=== PATIENT | male | born 1935 | race Caucasian/White ===

== ENCOUNTER 2017-06-02 16:01 | Emergency (ER) | payer MEDICARE ==
[~2017-06-02] VITALS: Ht 180.3 cm; Wt 108.9 kg
[~2017-06-02 16:01] MED LIST: ASPIRIN325; ATORVASTATIN CA40 MG PO; AVODART0.5 MG PO; BACTRIM DS TAB1 EACH PO; CIPRO500 MG PO; ELIQUIS5 MG PO; FLOMAX0.4 MG PO; HYDROCODONE-AP1 EAC6 PO; IBUPROFEN 800800 M1 PO; KEFLEX500 MG PO; LEVAQUIN 250 M250 MG PO; LEVAQUIN 500 M500 M2 PO; LEVAQUIN 500 M500 MG PO; MUCUS-ER MAX1200 MG PO; PREDNISONE50 MG PO; PRENATAL WITH IRON PO; PROAIR RESPICL90 MCG IH; PROPAFENONE 15150 MG PO; PROSCAR 5MG TABL5 MG PO; RYTHMOL 150MG150 M1 PO; SYMBICORT160 MCG/4. INH; VITAMIN B-1100 M1; ZOFRAN ODT4 MG PO
[2017-06-02] MEDS ORDERED: KEYTRUDA100 MG/4 M IV (16:32)
[2017-06-02] MEDS ORDERED: PERCOCET 5-3251 EACH PO (17:30)
[2017-06-02 17:40] VITALS: BP 177/79
== END 2017-06-02 17:41 | disposition home or self-care (01) ==
LOC: M.ERS 16:01
DX: S29.8XXA Other specified injuries of thorax, initial encounter (principal); I48.91 Unspecified atrial fibrillation; J45.909 Unspecified asthma, uncomplicated; E78.5 Hyperlipidemia, unspecified; J44.9 Chronic obstructive pulmonary disease, unspecified; Z87.440 Personal history of urinary (tract) infections; Z98.890 Other specified postprocedural states; Z85.528 Personal history of other malignant neoplasm of kidney; Z85.118 Personal history of other malignant neoplasm of bronchus and lung; Z88.6 Allergy status to analgesic agent; Z87.891 Personal history of nicotine dependence; X58.XXXA Exposure to other specified factors, initial encounter; Y93.89 Activity, other specified; Y92.89 Other specified places as the place of occurrence of the external cause; Y99.8 Other external cause status

== ENCOUNTER 2017-07-22 23:14 | Inpatient (IN) | payer MEDICARE ==
[~2017-07-22] VITALS: Ht 180.3 cm; Wt 109.8 kg
[~2017-07-22 23:14] MED LIST changes: +KEYTRUDA100 MG/4 M IV; +PERCOCET 5-3251 EACH PO
[2017-07-22 23:18] VITALS: BP 138/72
[2017-07-22 23:49] LABS: MCHC 34.3 g/dL (28.0-37.0); MCV 90.7 fL (80.0-100.0); NUCLEATED RBCS 0 /100WBC
[2017-07-22 23:51] LABS: HEMATOCRIT 28.4 % (42.0-52.0); HEMOGLOBIN 9.8 gm/dL (14.0-18.0); MCH 31.2 pg (26.0-34.0); MPV 6.9 fl. (7.2-11.1); PLATELET COUNT* 422 thou/uL (150-400); RBC 3.13 mil/uL (4.50-6.00); RDW-CV 13.8 % (10.5-14.5)
[2017-07-22 23:52] LABS: CALCIUM 8.7 mg/dL (8.5-10.1); CREATININE 1.3 mg/dL (0.6-1.3); POTASSIUM 4.8 mmol/L (3.5-5.1)
[2017-07-22 23:56] LABS: ALBUMIN 3.2 g/dL (3.4-5.0); TOTAL BILIRUBIN 0.2 mg/dL (<0.1-1.0); TOTAL PROTEIN 6.6 g/dL (6.4-8.2)
[2017-07-22 23:58] LABS: WBC 0.9 thou/uL (4.0-11.0)
[2017-07-23] VITALS (26 sets, daily range): BP systolic 91–183; BP diastolic 44–129
[2017-07-23 00:24] LABS: ABSOLUTE LYMPHOCYTES 0.6 thou/uL (0.8-5.3); ABSOLUTE MONOCYTES 0.1 thou/uL (0.0-1.2); ABSOLUTE NEUTROPHILS 0.3 thou/uL (1.6-8.1)
[2017-07-23 00:25] LABS: PLATELET ESTIMATE INCREASED
[2017-07-23 00:26] LABS: LARGE PLATELETS OCCASIONAL
[2017-07-23 00:27] LABS: POIKILOCYTOSIS 1+
[2017-07-23 01:31] LABS: URINE BILIRUBIN NEGATIVE (Negative); URINE BLOOD NEGATIVE (Negative); URINE CLARITY CLEAR; URINE COLOR YELLOW; URINE GLUCOSE-RANDOM NEGATIVE (Negative); URINE KETONES NEGATIVE (Negative); URINE LEUKOCYTES-REFLEX NEGATIVE (Negative); URINE PROTEIN NEGATIVE (Negative); URINE UROBILINOGEN 0.2 E.U./dl (0.2-1.0)
[2017-07-23 01:32] LABS: URINE NITRITE-REFLEX POSITIVE (Negative)
[2017-07-23 01:54] LABS: CASTS None Seen /LPF (None Seen); SQUAMOUS 0-3 Few /LPF (0-3); URINE RBC 0-2 Rare /HPF (0-2); URINE WBC-REFLEX 0-5 Rare /HPF (0-5)
[2017-07-23 01:55] LABS: BACTERIA-REFLEX >30 Many /HPF (None Seen); CRYSTALS None Seen /LPF (None Seen)
[2017-07-23 05:00] LABS: INR 1.3; PROTIME 13.1 Seconds (9.20-11.50)
[2017-07-23] MEDS ORDERED: MS CONTIN15 MG PO (09:38)
--- NOTE | 2017-07-23 11:55 | NUR ---
RECEIVED PT FROM PACU. UPON COMING TO UNIT PT TAKING OF OXYGEN FREQUENTLY. PT STARTED TO BECOME COMPATIVE, WOULD NOT KEEP O2 ON, DESATTING TO 79%. CALLED, ASKED FOR ORDER FOR RESTRAINTS. PT IN BILATERAL SOFT WRIST RESTRAINTS FOR 1.5 HOURS. PT PLACED ON TENT MASK FROM SURGERY. PT PUT ON 4L NC. SATTING 95. OXYGEN TITRATION PER PROTOCOL. PT CURRENTLY ON 2L NC SATTING AT 95%. PT A/O X'S 4. CALM. COOPERATIVE. VSS. AFEBRILE. NPO. CADENA IN PLACE (PLACED IN SURGERY). FAMILY IN ROOM. WILL CONTINUE PLAN OF CARE.
--- NOTE | 2017-07-23 13:07 | EKG ---
[place] [address] ELECTROCARDIOGRAM REPORT Name: CAROLANN KELLOGG Room: [address] ADM IN M.R.#: [id number] Admission: 07/23/17 Attend Phys: Josephine Mcfarlaen Discharge: Date of : 35 Report #: [id number] THIS REPORT FOR: //name// [facility] ED Test Date: 2017-07-23 Test Time: 04:16:22 Pat Name: CAROLANN KELLOGG Department: Room: [facility] Gender: M Construction Superintendent: SCOOTER Hall : 1935 Requested By: Rebecca Arnold Order Number: [id number] MD: Jon Bear Measurements Intervals Bruno Rate: 95 P: 64 NC: 172 QRS: 4 QRSD: 90 T: 70 QT: 317 QTc: 399 Interpretive Statements Sinus rhythm Abnormal inferior Q waves Minimal ST depression, lateral leads Compared to ECG 03/08/2017 00:35:39 Inferior Q waves now present Q waves now present ST (T wave) deviation now present First degree AV block no longer present Electronically Signed On 07-23-2017 13:07:33 CDT by Jon Bear [email or web address] <ELECTRONICALLY SIGNED> By: Joss Bear MD, FAC 07/23/17 1307 0416 0416 Joss Bear MD, FAC /EPI
--- NOTE | 2017-07-23 15:06 | NUR ---
ONCOLOGY ASKED THAT PT BE PLACED ON ANTICOAGULATION PT HAS ANTIPHOSPHOLIPID SYNDROME , REQUESTED LOVENOX WHEN OKAY WITH SURGERY. SURGERY CALLED AND SAID NO LOVENOX TODAY WILL REASSESS TOMORROW. SURGERY NOTIFIED OF PT'S CONDITION. RECEIVED ADDITIONAL ORDERS FROM ONCOLOGY.
[2017-07-23 16:12] LABS: HEMATOCRIT 23.7 % (42.0-52.0); HEMOGLOBIN 8.1 gm/dL (14.0-18.0); LYMPHOCYTES 8.2 %; MCHC 34.3 g/dL (28.0-37.0); MCV 90.4 fL (80.0-100.0); MONOCYTES 6.5 %; NUCLEATED RBCS 0 /100WBC; POLYS 85.3 %; RBC 2.62 mil/uL (4.50-6.00)
[2017-07-23 16:18] LABS: ABSOLUTE LYMPHOCYTES 0.3 thou/uL (0.8-5.3); ABSOLUTE MONOCYTES 0.3 thou/uL (0.0-1.2); ABSOLUTE NEUTROPHILS 3.4 thou/uL (1.6-8.1); PLATELET COUNT* 252 thou/uL (150-400)
--- NOTE | 2017-07-23 18:30 | NUR ---
PT C/O OF ABDOMINAL PAIN WITH COUGHING. PAIN MANAGED WITH PRN MORPHINE. PT TITRATED TO 2L NC. CADENA DRAINING DEPENDENTLY. YELLOW URINE. PT NPO. PT PERFORMS ORAL CARE INDEPENDENTLY.
[2017-07-24] VITALS (16 sets, daily range): BP systolic 100–130; BP diastolic 46–64
[2017-07-24 05:03] LABS: HEMATOCRIT 23.3 % (42.0-52.0); HEMOGLOBIN 7.9 gm/dL (14.0-18.0); MCHC 34.1 g/dL (28.0-37.0); MPV 7.6 fl. (7.2-11.1); NUCLEATED RBCS 0 /100WBC; PLATELET COUNT* 216 thou/uL (150-400); RBC 2.57 mil/uL (4.50-6.00); RDW-CV 14.2 % (10.5-14.5); WBC 12.8 thou/uL (4.0-11.0)
[2017-07-24 05:23] LABS: CALCIUM 7.9 mg/dL (8.5-10.1); CREATININE 1.6 mg/dL (0.6-1.3); POTASSIUM 5.2 mmol/L (3.5-5.1)
[2017-07-24 06:03] LABS: ABSOLUTE LYMPHOCYTES 0.5 thou/uL (0.8-5.3); ABSOLUTE MONOCYTES 0.6 thou/uL (0.0-1.2); ABSOLUTE NEUTROPHILS 11.6 thou/uL (1.6-8.1); PLATELET ESTIMATE ADEQUATE
[2017-07-24 06:04] LABS: ANISOCYTOSIS 1+; POIKILOCYTOSIS 1+; TOXIC GRANULATION 1+
--- NOTE | 2017-07-24 07:08 | NUR ---
PT CARE ASSUMED AFTER REPORT. ASSESSMENT COMPLETE. SR ON MOMITOR. DENIED NEED FOR PAIN MEDICATION. COLOSTOMY WITH SMALL AMOUNT OF WATERY RED FLUID. IVF INFUSING. CADENA TO DD. NEUTROPENIC PRECAUTIONS IN PLACE. NPO FOR ECHO TODAY. FALL PRECAUTIONS IN PLACE INCLUDING BED ALARM. CALL LIGHT IN REACH. BED IN LOWEST POSITION. SLOWLY PROGRESSING TOWARDS GOALS.
--- NOTE | 2017-07-24 07:30 | NUR ---
PT RESTING IN BED, NON PRODUCTIVE COUGH NOTED. PT DRESSINGH TO MID ABD INTACT. STOMA REMAINS PROTRUDING WITH REDISH CLEAR DRAIANGE NOTED.PARTIAL PLATED BRUSHED AND GIVEN TOPTY.
--- NOTE | 2017-07-24 10:38 | NUR ---
CHART REVIEWED, SPOKE WITH PT AND . PT HAD EMERGENCY EXP LAPAROTOMY AND COLOSTOMY YESTERDAY. PT ALERT AND ORIENTED AND ABLE TO ANSWER QUESTIONS. PT HAS CANCER, IS CURRENTLY GETTING CHEMO, HE SAID HE HAS BEEN DOING FARILY WELL WITH THAT. PT'S DRIVES HIM TO HIS CHEMO APPTS. IS SCHEDULED FOR SURGERY ON 08/03, SHE CANNOT POSTPONE THIS SURGERY. SHE HAS BEEN TOLD SHE WILL BE IN THE HOSPITAL FOR 5-7 DAYS. ASKING ABOUT PT GOING TO [facility] FOR 20 DAYS OF SKILLED CARE WHEN HE IS DISCHARGED, TO GET HIM PAST THE POINT OF HER SURGERY. DISCUSSED WITH PT AND THAT PT MAY NOT QUALIFY FOR MEDICARE CVERRED SKILLED TIME IN A FACILITY, IT WILL DEPEND ON HOW HE IS DOING AT TIME OF DISCHARGE. IF PT DOESN'T QUALIFY FOR SNF, HE WOULD HAVE HOME HEALTH AT THE TIME OF DISCHARGE. SAID SHE WILL START TALKING WITH FAMILY TO SEE IF THEY CAN ARRANGE THEIR SCHEDULES TO HELP WITH PT WHILE SHE IS IN THE HOSPITAL IF NEEDED. CASE MGT WILL CONTINUE TO FOLLOW.
--- NOTE | 2017-07-24 14:30 | 2DMMODE ---
[place] [address] 2 D/M-MODE ECHOCARDIOGRAM Name: CAROLANN KELLOGG Room: [address] ADM IN [facility]#: [id number] Admission: 07/23/17 Attend Phys: Boone Hinkle Discharge: Date of : 35 Date of Service: 07/24/17 1430 Report #: [id number] THIS REPORT FOR: //name// APPROVED REPORT Study performed: 07/24/2017 10:40:14 EXAM: Comprehensive 2D, Doppler, and color-flow Echocardiogram Patient Location: In-Patient Room #: 003 BSA: 2.23 HR: 78 bpm BP: 128/46 mmHg Other Information Study Quality: Technically Difficult Technically limited study due to inability to position patient. Indications Atrial Fibrillation 2D Dimensions IVSd: 10.98 (7-11mm) LVOT Diam: 20.48 (18-24mm) LVDd: 43.17 mm PWd: 11.47 (7-11mm) Ascending Ao: 40.16 (22-36mm) LVDs: 31.80 (25-40mm) Aortic Root: 21.03 mm Volumes Left Atrial Volume (Systole) LA ESV Index: 18.20 mL/m2 Aortic Valve AoV Peak Ganga.: 1.36 m/s AO Peak Gr.: 7.36 mmHg LVOT Max P.35 mmHg AO Mean Gr.: 3.60 mmHg LVOT Mean P.34 mmHg LVOT Max V: 1.04 m/s AO V2 VTI: 19.36 cm LVOT Mean V: 0.72 m/s REGINO (VTI): 3.00 cm2 LVOT V1 VTI: 17.60 cm Mitral Valve MV Decel. Time: 169.90 ms MV PHT: 49.27 [place] [address] 2 D/M-MODE ECHOCARDIOGRAM Name: CAROLANN KELLOGG Room: [address] IN .R.#: [id number] Admission: 07/23/17 Attend Phys: Boone Hinkle Discharge: Date of : 35 Date of Service: 07/24/17 1430 Report #: [id number] MVA (PHT): 4.47 cm2 TDI Medial E' Ganga.: 0.13 m/s Lateral E' Ganga.: 0.17 m/s Pulmonary Valve PV Peak Ganga.: 1.31 m/s PV Peak Gr.: 6.84 mmHg Tricuspid Valve TR Peak Gr.: 22.26 mmHg RVSP: 27.26 mmHg Left Ventricle The left ventricle is normal size. There is normal LV segmental wall motion. Mild concentric left ventricular hypertrophy. Left ventricular systolic function is hyperdynamic. LVEF is >70%. The left ventricular diastolic function is normal. Right Ventricle The right ventricle is normal size. The right ventricular systolic function is normal. Atria The left atrium size is normal. The right atrium size is normal. Aortic Valve The aortic valve is normal in structure. No aortic regurgitation is present. There is no aortic valvular stenosis. Mitral Valve The mitral valve is normal in structure. There is no mitral valve regurgitation noted. No evidence of mitral valve stenosis. Tricuspid Valve The tricuspid valve is normal in structure. Mild tricuspid regurgitation. The RVSP is __27.3 mmHg. Pulmonic Valve Pulmonic valve is not well visualized. There is no pulmonic valvular regurgitation. Great Vessels Aortic root is mildly dilated. IVC is normal in size and collapses with >50% [place] [address] 2 D/M-MODE ECHOCARDIOGRAM Name: CAROLANN KELLOGG Room: [address] IN [facility]#: [id number] Admission: 07/23/17 Attend Phys: Boone Hinkle Discharge: Date of : 35 Date of Service: 07/24/17 1430 Report #: [id number] Pericardium There is no pericardial effusion. <Conclusion> Mild concentric left ventricular hypertrophy. LVEF is >70%. <ELECTRONICALLY SIGNED> By: Carolann Fowler MD, FACC 03/19/18 1430 1430 1430 Carolann Fowler MD, FAC /INF
--- NOTE | 2017-07-24 18:57 | NUR ---
PT DOING WELL. SCANT DRAINGE NOTED TO COLOSTOMY,PT TURNED THROUGH SHIFT. PT REMANS AFEVERILE. AM CARE COMPLETED.DRESSING TO ABD SITE REMANS DRY AND INTACT. PT IS PROGRESSING TOWARDS GOALS.
[2017-07-25] VITALS (10 sets, daily range): BP systolic 105–152; BP diastolic 45–72
[2017-07-25 05:45] LABS: HEMATOCRIT 23.4 % (42.0-52.0); MCH 31.1 pg (26.0-34.0); MCHC 34.1 g/dL (28.0-37.0); MCV 91.1 fL (80.0-100.0); MPV 7.9 fl. (7.2-11.1); NUCLEATED RBCS 0 /100WBC; PLATELET COUNT* 174 thou/uL (150-400); RBC 2.56 mil/uL (4.50-6.00); RDW-CV 14.7 % (10.5-14.5); WBC 23.5 thou/uL (4.0-11.0)
[2017-07-25 06:23] LABS: CALCIUM 8.3 mg/dL (8.5-10.1); CREATININE 1.8 mg/dL (0.6-1.3); POTASSIUM 4.7 mmol/L (3.5-5.1)
[2017-07-25 06:52] LABS: ABSOLUTE LYMPHOCYTES 0.2 thou/uL (0.8-5.3); ABSOLUTE MONOCYTES 0.9 thou/uL (0.0-1.2); ABSOLUTE NEUTROPHILS 22.3 thou/uL (1.6-8.1); PLATELET ESTIMATE ADEQUATE
--- NOTE | 2017-07-25 07:52 | CON ---
[facility] [address] [place] [address] CONSULTATION Name: CAROLANN KELLOGG Room: [address] ADM IN M.R.#: [id number] Admission: 07/23/17 Attend Phys: Josephine Mcfarlane Discharge: Date of : 35 Report #: [id number] THIS REPORT FOR: //name// CC: Uziel Hinkle DATE OF SERVICE: 07/24/2017 ATTENDING PHYSICIAN: Dr. Hinkle. REASON FOR EVALUATION: Peritonitis secondary to perforated sigmoid diverticulum. HISTORY OF PRESENT ILLNESS: Chart reviewed, patient examined. 82-year-old who was evaluated through the Emergency Room, is notable as advanced age, lung cancer, presented with a fairly abrupt abdominal related pain. This did have associated stools and attributed in part due to constipation. This, however, persisted, in fact worsened. He contacted the physician customer relations consultant who suggested he try some oxycodone for breakthrough pain. This was not successful, he is instructed to go to the Emergency Room. Evaluation was undertaken including imaging, which showed that sigmoid perforation with air dissection into the adjacent soft tissue with some free air. He did undergo operative exploration, confirmed to have perforated diverticulitis involving the sigmoid and underwent sigmoid colon resection and Madina colostomy. He is seen postop in the Intensive Care Unit. He is not intubated at this point. He has a moderate degree of pain, is generally fairly lucid, is requiring supportive measures with supplemental oxygen, was empirically started on antibiotics consisting of Flagyl, piperacillin, tazobactam and vancomycin. Of note, he has undergone recent chemotherapy, found to have a total white count of 0.9 on admission. His serial white counts are now 4.0 and then 12.8. ALLERGIES: NIACIN. CURRENT MEDICATIONS: Include pantoprazole, vancomycin, enoxaparin, metronidazole, albuterol, ondansetron as needed, Zosyn, morphine, zolpidem. PAST MEDICAL HISTORY: As noted above, advanced lung cancer, history of right renal cell carcinoma with post-nephrectomy, did have subsequent isolation of tumors related to the bladder on at least 3 occasion's screening. COPD, hematuria with a diagnosis of renal lithiasis, hyperlipidemia, atrial fibrillation. SOCIAL HISTORY: Former smoker, although quit a number of years ago[place] [address] CONSULTATION Name: CAROLANN KELLOGG Room: [address] IN [facility]#: [id number] Admission: 07/23/17 Attend Phys: Josephine Mcfarlane Discharge: Date of : 35 Report #: [id number] FAMILY HISTORY: Noncontributory. REVIEW OF SYSTEMS: As above. PHYSICAL EXAMINATION: GENERAL: He is pleasant, alert and cooperative. He appears fairly well-nourished. He is lucid, mild to moderate distress. VITAL SIGNS: Temperature 98.2, pulse 78, respirations 11, blood pressure 128/46. SKIN: Warm, dry. NECK: Supple. LUNGS: Few scattered coarse breath sounds. HEART: Regular. I do not appreciate any murmur. ABDOMEN: Soft. He does have a dressing in place and ostomy on the left side, is mildly distended. There is some tenderness expected postop related. GENITOURINARY: Deferred. RECTAL: Deferred. LABORATORY DATA: CBC: White count of 12.8, H and H 7.9 and 23.3, platelets of 216. 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 Electrolytes: Sodium 142, potassium 5.2, chloride 108, bicarb is 26, anion gap of 8, BUN and creatinine 26 and 1.6. Estimated GFR of 42. CT abdomen and pelvis as noted above. Lactic acid was 1.8 on admission. Urinalysis 0-5 white cells. Liver functions were otherwise unremarkable. Albumin 3.2, total protein 6.6. ASSESSMENT: Perforated sigmoid diverticulum in the setting of immunosuppression. White count has responded quite nicely at this point. He is not exhibiting evidence of multiorgan dysfunction. We will continue empiric antibiotics, await culture results, adjust therapy, likely pare down as needed He is generally doing fairly well given the overall picture. We will follow. <ELECTRONICALLY SIGNED> By: Natalio Shrestha MD 07/25/17 0752 0952 [id number] Shrestha MD /nt
--- NOTE | 2017-07-25 08:28 | NUR ---
TALKED WITH SURGERY, PT ON A CLEAR LIQUID DIET. PER DR BIANCHI IF PT TOLERATES PO DIET OKAY FOR PRIMARY TO RESTART PO MEDS. DR LOPEZ AWARE.
--- NOTE | 2017-07-25 13:11 | S ---
[facility] [address] [place] [address] SURGICAL PATH RPT PROCEDURE Name: CAROLANN KELLOGG Room: [address] ADM IN M.R.#: [id number] Admission: 07/23/17 Date of : 35 Discharge: Report #: [id number] Path Case #: [id number] PATHOLOGY REPORT COLLECTION DATE: 07/23/2017 RECEIVED DATE: 07/24/2017 SUBMITTING PHYS: Dr. Uziel Salas OTHER PHYS: Dr. Boone Hyatt SPECIMEN(S) RECEIVED: A.Sigmoid colon * * * * * * * * * * * * FINAL DIAGNOSIS: Sigmoid colon: - Segment of benign colon with diverticular disease including acute diverticulitis with perforation and acute serositis. (JUHI:[facility]; 07/25/2017) PATHOLOGIST: Brock Hanna M.D. REPORT ELECTRONICALLY SIGNED BY: Brock Hanan M.D. DATE/TIME: 07/25/2017 13:10 * * * * * * * * * * * * GROSS PATHOLOGY: The specimen is received in formalin, labeled "Carolann Kellogg, sigmoid colon," and consists of an unoriented segment of colon measuring 14.4 cm in length and 2.2 cm in diameter. Both margins are stapled closed. The serosal surface is pink-patel and smooth. There is a defect consistent with a perforation measuring 4.0 x 2.0 cm that extends to within 2.5 cm of the nearest stapled resection margin. The serosa surrounding the defect is inked black. The attached pericolic fat measures up to 7.3 cm. The specimen is opened along the antimesenteric line to reveal a mucosa filled with fecal material and flattened mucosal folds. Serial sectioning reveals a diverticulum measuring up to 1.4 cm in addition to the perforated diverticula. Sectioning through the attached pericolic fat reveals no grossly identifiable lymph nodes. Hydrator sections are submitted as follows: A1: Stapled resection margin A2: Stapled resection margin closest to perforation A3-A5: Hydrator sections through perforation A6: Additional diverticula (SDY; 07/24/2017) [place] [address] SURGICAL PATH RPT PROCEDURE Name: CAROLANN KELLOGG Room: [address] IN ..#: [id number] Admission: 07/23/17 Date of : 35 Discharge: Report #: [id number] Path Case #: [id number] CLINICAL HISTORY: Abdominal pain, colonic perforation Perforated sigmoid diverticulitis INITIAL CPT CODE(S): A; 62715 Professional services performed by [facility] at [address] [address] Technical services performed by [facility] at [address] [place] [address], [address], [place] [address]. [facility] [address] [address] PHONE: [phone] DIRECTOR: Leandro W. Vipin, M.D. * * * END OF REPORT * * *
--- NOTE | 2017-07-25 16:14 | CON ---
[address] [address] CONSULTATION Name: CAROLANN KELLOGG Room: [address] ADM IN M.R.#: [id number] Admission: 07/23/17 Attend Phys: Josephine Mcfarlane Discharge: Date of : 35 Report #: [id number] THIS REPORT FOR: //name// CC: Uziel Hinkle DATE OF SERVICE: 07/23/2017 HISTORY OF PRESENT ILLNESS: I was asked by Dr. Joseph to see this 82-year-old white male in cardiology consultation for evaluation and treatment of a history of atrial fibrillation. This man is hospitalized with a perforated sigmoid colon. He has a complex medical history, principally involving widespread metastatic lung cancer, apparently metastatic to kidneys and bladder and bone and possibly lung as well. He came in with a perforated sigmoid colon and had surgery last night. This man does have a history of coronary artery disease many years ago, I think he said 20 years ago and coronary stents then. He has some COPD and asthma and hyperlipidemia as well. He is in sinus rhythm. He has been on propafenone as an antiarrhythmic for 10 years and Eliquis for anticoagulation more recently. He has been on 300 mg b.i.d. of propafenone plain not extended release and he has not had any atrial fib since he has been on the propafenone for 10 years, which was started when he had his one and only episode of atrial fibrillation. His EKG shows normal sinus rhythm, heart rate is 95 and there are minor nonspecific T-wave abnormalities. He has not had any chest pain or angina. Coronary risk factors include a past history of smoking and hypercholesterolemia. He has not had high blood pressure, diabetes or family history of coronary artery disease. He is currently not smoking, but he does have a past history of smoking. He has not had renal failure, TIAs or CVAs or carotid disease or peripheral vascular disease or claudication. ALLERGIES: HE IS ALLERGIC TO NIACIN. MEDICATIONS: Include albuterol q.4h. p.r.n., Eliquis 5 mg b.i.d., atorvastatin 40 mg at bedtime, Symbicort daily, Proscar 5 mg daily, hydrocodone APAP p.r.n., morphine extended release 15 mg at bedtime, Keytruda a chemotherapy agent for his lung cancer 100 mg every 3 weeks and previously mentioned propafenone as well as a vitamin with iron. REVIEW OF SYSTEMS: Positive for weakness, weight loss, cough, shortness of breath with exercise, waking up short of breath, the previously mentioned cancers, ALLERGY TO NIACIN. Otherwise, his review of systems is negative for some 40 different complaints in 14 different system categories including central nervous system, general, respiratory, cardiovascular, endocrine, gastrointestinal, genitourinary, hematologic, lymphatic, allergic, immunologic, psychiatric, musculoskeletal, skin, eyes, ears, nose, mouth, [place] [address] CONSULTATION Name: CAROLANN KELLOGG Room: [address] IN ..#: [id number] Admission: 07/23/17 Attend Phys: Josephine Mcfarlane Discharge: Date of : 35 Report #: [id number] see review of system form for details and negatives in review of systems. FAMILY HISTORY: Negative for any pertinent family history. SOCIAL HISTORY: Unremarkable. PHYSICAL EXAMINATION: GENERAL: He presents as a well-developed, well-nourished white male in no acute distress. VITAL SIGNS: Pulse was 84 and regular, blood pressure is 114/49, respirations 13 and regular, temperature is 98.5. HEENT: Head was atraumatic. Eyes clear. NECK: Supple. There is no jugular venous distention or hepatojugular reflux. Thyroid is not enlarged. There is no adenopathy. SKIN: Warm and dry. Mucous membranes are moist. LUNGS: Clear to auscultation and percussion. HEART: Revealed normal first and second heart sounds. Soft S4. There is no S3. There are no murmurs, rubs, thrills, heaves or gallops. PMI is nondisplaced. ABDOMEN: Soft, flat, nontender, no palpable masses, no organomegaly. EXTREMITIES: Reveal no cyanosis, clubbing or edema. NEUROLOGIC: The patient mentated normally, talked and normally, moved all extremities normally. IMPRESSION: 1. History of atrial fibrillation, now in sinus rhythm. Apparently in sinus rhythm for the last 10 years. 2. Metastatic lung cancer. 3. Perforated sigmoid colon. 4. Status post surgery for perforated sigmoid colon last night. 5. Coronary artery disease. 6. Status post coronary stents. 7. Asthma. 8. Chronic obstructive pulmonary disease. 9. Hyperlipidemia. RECOMMENDATION: I would simply observe him from the cardiac point of view now. If he goes into atrial fibrillation, anticoagulating with heparin and I would probably use amiodarone after initially controlling his heart rate with Cardizem IV. I would use IV amiodarone of course. There is no IV propafenone that is available. Hopefully, he will not go into atrial fibrillation. [address] [address] CONSULTATION Name: CAROLANN KELLOGG Room: 003-P ADM IN .R.#: [id number] Admission: 07/23/17 Attend Phys: Josephine Mcfarlane Discharge: Date of : 35 Report #: [id number] Thank you very much for asking me to see the patient. If there are any questions, please feel free to contact me. <ELECTRONICALLY SIGNED> By: Joss Bear MD, FACC 07/25/17 1614 1232 1755F. Jon Bear MD, FACC /nt
[2017-07-25 17:46] LABS: URINE BILIRUBIN NEGATIVE (Negative); URINE BLOOD TRACE (Negative); URINE CLARITY CLOUDY; URINE COLOR YELLOW; URINE GLUCOSE-RANDOM NEGATIVE (Negative); URINE KETONES NEGATIVE (Negative); URINE LEUKOCYTES NEGATIVE (Negative); URINE NITRITE NEGATIVE (Negative); URINE PROTEIN 1+ (Negative); URINE SPECIFIC GRAVITY 1.025 (1.005-1.030); URINE UROBILINOGEN 0.2 E.U./dl (0.2-1.0)
[2017-07-25 17:53] LABS: BACTERIA None Seen /HPF (None Seen); MUCUS 0-3 Light strn/LPF (None Seen); SQUAMOUS 0-3 Few /LPF (0-3); URINE RBC 0-2 Rare /HPF (0-2); URINE WBC None Seen /HPF (0-5)
[2017-07-25 17:54] LABS: COARSE GRANULAR CASTS 4-10 Moderate /LPF (None Seen); CRYSTALS None Seen /LPF (None Seen)
--- NOTE | 2017-07-25 18:45 | NUR ---
PT TRANSFERED WITH ALL PERSONAL ITEMS. CESAR RN REMINDED THAT WHEN PT RESUMES HIS PO RYTHMOL TO STOP HIS CARDIZEN GTT.
--- NOTE | 2017-07-25 18:52 | NUR ---
PT TRANSFERRED TO ROOM 221 VIA BED AT 1815. REPORT RECEIVED FROM RICARDO HERRERA. THIS RN AGREES WITH PREVIOUS DISTANCE LEARNING TECHNICIAN. PT IN NEUTROPENIC PRECAUTIONS. PT A&0X4. TRACING SR ON THE DOPE HOUSE OPERATOR HELPER. PT ON 2L NC SAT 94%. DENIES ANY PAIN OR SHORTNESS OF BREATH AT THIS TIME. CADENA TO DEPENDENT DRAINAGE. LEFT LOWER QUADRANT COLOSTOMY TO DEPENDENT DRAINAGE WITH REDDISH PINK DRAINAGE NOTED. MIDLINE ABDOMINAL DRESSING IN PLACE- C/D/I. PT ON CLEAR LIQUID DIET. PT TO BE NPO AFTER MIDNIGHT FOR US ABDOMEN IN AM. MEDICATIONS PER JUL. PT REPOSITIONED FOR COMFORT. HOURLY ROUNDING OBSERVED. BED IN LOW POSITION. BED ALARM IN PLACE. FALL PRECAUTIONS IN PLACE. CALL LIGHT WITHIN REACH. WILL CONTINUE PLAN OF CARE.
[2017-07-26] VITALS: BP 157/82
--- NOTE | 2017-07-26 02:27 | NUR ---
Pt converted to Afib RVR at 0030, HR 130s. Within a 10-15 minutes pt's HR down to 90s-110s. Then at 0140, HR back up to 130s. Paged Dr. Grimes, orders received to resume Cardizem gtt at 5 mg/h, no bolus. Cardizem resumed at 0225. Pt asymptomatic. Will continue to monitor.
[2017-07-26 04:34] VITALS: BP 131/86
[2017-07-26 05:34] LABS: ABSOLUTE LYMPHOCYTES 0.4 thou/uL (0.8-5.3); ABSOLUTE MONOCYTES 1.1 thou/uL (0.0-1.2); ABSOLUTE NEUTROPHILS 17.5 thou/uL (1.6-8.1); BASOPHILS 0.1 %; EOSINOPHILS 0.1 %; HEMATOCRIT 24.3 % (42.0-52.0); HEMOGLOBIN 8.3 gm/dL (14.0-18.0); MCH 30.8 pg (26.0-34.0); MCHC 34.1 g/dL (28.0-37.0); MCV 90.5 fL (80.0-100.0); MONOCYTES 5.6 %; MPV 8.1 fl. (7.2-11.1); NUCLEATED RBCS 0 /100WBC; PLATELET COUNT* 139 thou/uL (150-400); POLYS 92.2 %; RBC 2.68 mil/uL (4.50-6.00); RDW-CV 14.4 % (10.5-14.5)
[2017-07-26 05:40] LABS: ALBUMIN 2.1 g/dL (3.4-5.0); CALCIUM 8.4 mg/dL (8.5-10.1); CREATININE 1.6 mg/dL (0.6-1.3); POTASSIUM 4.4 mmol/L (3.5-5.1); TOTAL BILIRUBIN 0.4 mg/dL (<0.1-1.0); TOTAL PROTEIN 5.4 g/dL (6.4-8.2)
[2017-07-26 08:11] VITALS: BP 128/66
--- NOTE | 2017-07-26 09:17 | NUR ---
ASSUMED CARE OF PT THIS AM AROUND 0715- TOWER CLEANER IN PLACE ORDERED, TRACING SR WITH 1ST DEGREE- UPON ASSESSMENT PT NOTED TO BE RESTING IN BED- PT A&O X4- COLOSTOMY IN PLACE RED STOMA, SMALL AMOUNT OF BROWN LIQUID NOTED- CADENA IN PLACE D/D- DIET ADVANCED TO FULL LIQUIDS PER SURGERY THIS AM-LUNG SOUNDS DIMINISHED, RESP EVEN AND UN-LABORED- VSS, O2 SAT 94% ON 1.5L-ABDOMEN FIRM/ROUND/TENDER, BS HYPOACATIVE-IV NOTED TO LEFT HAND INTACT IVF INFUSING PRESCIBED, 2ND IV NOTED TO LEFT WRIST INTACT WITH IV CARDIZEM INFUSING PRESCIBED, 3RD IV NOTED TO LEFT FA INTACT AND SL- ABDOMINAL ABD PAD NOTED OVER INCISSION C/D/I, ASSESSED PER SURGERY THIS AM- ABDOMINAL MIDLINE INCISSION WITH ROSEANNA NOTED- PT REPORTS PAIN 5/10 TO ABD, PRN MPAIN MEDICATIONS INDICATED- CALL LIGHT AND PERSONAL BELONGINGS WITH IN REACH- HOURLY ROUNDS IN PLACE R/T SAFETY/NEEDS- ALL NEEDS MET AT THIS TIME-WCTM
[2017-07-26 11:39] VITALS: BP 144/70
--- NOTE | 2017-07-26 12:41 | NUR ---
This RN agrees with the assessment of SN. Santosh
--- NOTE | 2017-07-26 14:46 | NUR ---
ORDERS NOTED THIS SHIFT FOR KUB TO BE COMPLETED R/T ABSENT BOWEL SOUNDS WITH DISTENTION NOTED PER THIS SHIFT-WHILE AWAITNG RESULTS WITH SURGERY IN TO ASSESS WITH VERBAL ORDERS NOTED THAT IF PT IS TO HAVE EMESIS X1 TO HAVE NG PLACED- RESULTS OF KUB NOTED SMALL BOWEL LOOPS COMPATIBLE WITH A HIGH GRADE DISTAL MECHANICAL SMALL BOWEL OBSTRUCTIONS- ORDERS COMMUNICATED TO - ORDERS RECIEVED TO PLACE NG TUBE, AND NOTIFY SURGERY- PT UPDATED ON ORDERS FOR NG TUBE AND PT AND EXPRESS THAT THEY DO NOT WANT TO HAVE NG PLACED AT THIS TIME, WOULD LIKE TO WAIT AT THIS TIME- UPDATED ON RESULTS WELL ORDERS WITH PT AND CONCERNS-ALSO UPDATED THAT PT HAS HAD DOUBLE WHAT WAS OBSERVED IN COLOSTOMY IN AM OF BROWN LIQUID- INSTRUCTIONS RECIVED TO ALLOW FOR CLEAR LIQUIDS/SIPS, BUT IF NAUSEA WORSENS OF EMESIS NOTED, NG TO BE PLACED- UPDATED ON SURGERY PLANS AND OKAY- FAMILY UPDATED ON PLANS AT THIS TIME AND POSSIBLE NEED FOR NG SHOULD THAT ARRISE R/T INCREASED NAUSEA OR EMESIS- PT AND EXPRESSED UNDERSTANDING- CALL LIGHT AND PERSONAL BELONGINGS WITH IN REACH- PT REPORTS NAUSEA TO BJE MANAGEABLE, CURRENTLY RESTING WITH NO PAIN REPORTED AT THIS TIME- TOLERATING ICE CHIPS AT THIS TIME- ALL NEEDS MET AT THIS TIME-WCCASANDRA
[2017-07-26 16:45] VITALS: BP 138/71
[2017-07-26 20:00] VITALS: BP 136/67
--- NOTE | 2017-07-26 23:21 | NUR ---
BEGAN CARE OF PT AT 1915, PT SLEEPING DURING BEDSIDE REPORT, REVIEWED CARDIZEM AND IV FLUIDS WITH RN AT THAT TIME, CARDIZEM RUNNING AT 5MG/HR CURRENTLY, WHEN RE-ASSESSMENT COMPLETED PT WAS A/OX4, AFIB ON THE MONITOR WITH HR IN THE 60'S, VSS, MEDS/ASSESSMENT PER CHARTING, PT REPORTED HE IS FREE FROM PAIN/SOA, ROSEANNA/INCISION TO ABD FREE FROM SWELLING/REDNESS/BLEEDING, COLOSTOMY BAG IN PLACE TO LLQ WITH SCANT OUTPUT AT TIME OF ASSESSMENT, PT STATED HE DOES NOT HAVE ANY NAUSEA AND IS HOPING HE DOES WELL OVER NIGHT BECAUSE HE DOES NOT WANT TO HAVE AN NG TUBE AGAIN HE REMEMBERS HAVING ONE BEFORE, HOURLY ROUNDING IN PLACE, FALL PRECAUTIONS IN PLACE WITH BED IN LOW LOCKED POSITION WITH ALARM SET AND CALL LIGHT IN REACH, WILL CONT TO MONITOR.
[2017-07-27] VITALS: BP 143/72
[2017-07-27 04:00] VITALS: BP 146/64
[2017-07-27 05:42] LABS: HEMATOCRIT 22.9 % (42.0-52.0); HEMOGLOBIN 7.8 gm/dL (14.0-18.0); MCH 31.5 pg (26.0-34.0); MCHC 34.2 g/dL (28.0-37.0); MPV 8.1 fl. (7.2-11.1); RBC 2.49 mil/uL (4.50-6.00); RDW-CV 14.9 % (10.5-14.5); WBC 8.1 thou/uL (4.0-11.0)
[2017-07-27 05:57] LABS: CALCIUM 8.2 mg/dL (8.5-10.1); CREATININE 1.6 mg/dL (0.6-1.3); MAGNESIUM 1.8 mg/dL (1.8-2.4); PHOSPHORUS* 3.4 mg/dL (2.5-4.9); POTASSIUM 4.1 mmol/L (3.5-5.1)
[2017-07-27 08:31] VITALS: BP 145/68
--- NOTE | 2017-07-27 10:51 | EKG ---
[place] [address] ELECTROCARDIOGRAM REPORT Name: CAROLANN KELLOGG Room: [address] ADM IN M.R.#: [id number] Admission: 07/23/17 Attend Phys: Josephine Mcfarlane Discharge: Date of : 35 Report #: [id number] THIS REPORT FOR: //name// 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
--- NOTE | 2017-07-27 10:51 | EKG ---
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 Electronically Signed On 07-27-2017 10:50:59 CDT by Kel Grimes [email or web address] <ELECTRONICALLY SIGNED> By: Kel Grimes MD, [facility] 07/27/17 1050 0133 0133 Kel Grimes MD, FACC /EPI
[2017-07-27 11:37] VITALS: BP 151/71
--- NOTE | 2017-07-27 14:48 | NUR ---
CM went to discuss disposition, Pt had a room full of visitors, CM to f/u later.
--- NOTE | 2017-07-27 14:52 | NUR ---
RECEIVED REPORT. ASSUMED CARE OF PT AROUND 0730. PT A&O X4, PLEASANT. VSS, O2 SAT 95% ON 2L PER NC. CARDIAC MONITORING IN PLACE TRACING SR. CARDIZEM DRIP STILL RUNNING AT 5MG/HR, TO CONTINUE FOR NOW PER CARDIOLOGY NURSE KARLENE. HR 70. AM ASESSMENT AND VITALS COMPLETED CHARTED. IV TO LEFT FOREARM INTACT AND INFUSING CARDIZEM. IV TO LEFT HAND INTACT AND INFUSING IVF. IV TO LEFT WRIST PT DISCONTINUED AND WAS REMOVED. PT ABLE TO TAKE IN APPLE JUICE AND WATER SO FAR TODAY - NO NAUSEA/VOMITTING SO FAR THIS SHIFT. PT STATES HE FEELS "MUCH BETTER TODAY". BOWEL SOUNDS AUSCULTATED IN ALL 4 QUADRANTS - HYPOACTIVE. PT BELCHING. COLOSTOMY IN PLACE AT [facility] - SMALL AMOUNT SOFT, BROWN STOOL NOTED. CADENA IN PLACE DRAINING YELLOW URINE. PT ABLE TO GET UP TO BEDSIDE CHAIR TODAY WITH ASSIST X1. TOLERATED WELL. FAMILY VISITED THIS AFTERNOON. DR MCBRIDE ROUNDED ON PT - VANCO STOPPED. PT INFORMED OF PLAN OF CARE, COMMUNICATES UNDERSTANDING. PT CURRENTLY RESTING IN BED. HIGH FALL RISK PRECAUTIONS IN PLACE. CALL LIGHT IS WITHIN REACH, HOULRY ROUNDING PERFORMED. PT REPOSITIONED Q2HRS FOR COMFORT. WCTM.
[2017-07-27 15:30] VITALS: BP 151/73
--- NOTE | 2017-07-27 19:03 | NUR ---
PT PROGRESSING TOWARDS GOALS. PT REMAINS A&O X4. VSS. O2 >90% ON 2L NC. VEHICLE UPHOLSTERER IN PLACE TRACING SR. IV TO LEFT FOREARM INFUSING CARDIZEM. IV TO LEFT HAND INFUSING IVF. CADENA REMOVED THIS EVENING. COLOSTOMY IN PLACE, 25ML SEMIFORMED OUTPUT NOTED. STOMA BEEFY RED. OSTOMY NURSE CONSULTED TO ASSIST WITH PT EDUCATION ABOUT COLOSTOMY CARE. PT REMAINS ON CLD - TOELRATING. PT DENIES NAUSEA/VOMITTING THIS SHIFT. FAMILY VISITED THROUGHOUT THE DAY. PT HAS DENIED PAIN THROUGHOUT THE SHIFT. PT ABLE TO WORK WITH P.T. TODAY. UP TO BEDSIDE CHAIR FOR A TIME. PT STATES HE HAS FELT GOOD TODAY. PT CURRENTLY WATCHING TV IN BED. FALL PRECAUTIONS ARE IN PLACE. CALL LIGHT IS WITHIN REACH. HOURLY ROUNDING PERFORMED.
[2017-07-27 20:30] VITALS: BP 136/65
[2017-07-28] VITALS: BP 132/60
[2017-07-28 04:00] VITALS: BP 128/64
--- NOTE | 2017-07-28 04:19 | NUR ---
ASSUMED PT CARE AT 1930, PT IS A&OX4, PT IS TRACING NSR/SA ON THE MONITOR, ON 2L NC SATTING MID TO HIGH 90'S. PT HAS IVF INFUSING PER MAR, PT HAS CARDIZEM RUNNING AT 5MG/HR WELL. PT DENIES ANY PAIN OR NEEDS AT THIS TIME. MIDLINE ABD INCISION IS CDI, CLOSED WITH ROSEANNA. PT HAS A NEW COLOSTOMY TO [facility], COLOSTOMY PUTTING OUT SMALL AMOUNTS OF STOOL. PT DENIES ANY NAUSEA THIS SHIFT, STILL C/O OF BELCHING. PT HAD CADENA REMOVED BY DAY RN AND PT HAS VOIDED MULTIPLE TIMES THIS SHIFT WITHOUT ANY ISSUES. BED IN LOW POSITION, CALL LIGHT IN REACH, BED ALARM ON, YELLOW ARM BAND AND SOCKS IN PLACE. HOURLY ROUNDING COMPLETED FOR PT SAFETY.
[2017-07-28 05:09] LABS: HEMATOCRIT 22.5 % (42.0-52.0); HEMOGLOBIN 7.7 gm/dL (14.0-18.0); MCH 31.4 pg (26.0-34.0); MCHC 34.2 g/dL (28.0-37.0); MCV 91.7 fL (80.0-100.0); MPV 8.1 fl. (7.2-11.1); NUCLEATED RBCS 0 /100WBC; PLATELET COUNT* 71 thou/uL (150-400); RBC 2.46 mil/uL (4.50-6.00); RDW-CV 14.7 % (10.5-14.5)
[2017-07-28 05:37] LABS: ALBUMIN 2.1 g/dL (3.4-5.0); CALCIUM 8.3 mg/dL (8.5-10.1); CREATININE 1.5 mg/dL (0.6-1.3); TOTAL BILIRUBIN 0.4 mg/dL (<0.1-1.0); TOTAL PROTEIN 5.4 g/dL (6.4-8.2)
[2017-07-28 05:44] LABS: MAGNESIUM 1.9 mg/dL (1.8-2.4); PHOSPHORUS* 3.2 mg/dL (2.5-4.9)
[2017-07-28 06:30] LABS: ABSOLUTE LYMPHOCYTES 0.7 thou/uL (0.8-5.3); ABSOLUTE MONOCYTES 0.7 thou/uL (0.0-1.2); ABSOLUTE NEUTROPHILS 4.6 thou/uL (1.6-8.1); PLATELET ESTIMATE DECREASED
[2017-07-28 06:31] LABS: TOXIC GRANULATION 1+
[2017-07-28 08:07] VITALS: BP 158/82
--- NOTE | 2017-07-28 10:50 | NUR ---
ASSUMED CARE OF PT AT 0730. PT RESTING IN BED WAITING FOR BREAKFAST. PT A&0X4. DENIES ANY PAIN OR SHORTNESS OF BREATH AT THIS TIME. PT TRACING SR ON THE DYE MAKER. ON 2L NC SAT 97%. CARDIZEM GTT INFUSING AT 5ML/HR. CARDIOLOGY HERE TO SEE PT. ORDERS RECEIVED PER [facility]AN CARDIOLOGY CHANNEL SUPERVISOR TO TRANSITION PT TO PO CARDIZEM AND DC CARDIZEM GTT. PO CARDIZEM STARTED AT APPROXIMATELY 0940. GTT DISCONTINUED AT APPROXIMATELY 1040. REFER TO EMAR. COLOSTOMY TO DEPENDENT DRAINAGE WITH SOFT BROWN STOOL. HYPOACTIVE BOWEL SOUNDS NOTED. ANEESH KENT, OSTOMY NURSE TO COME THIS AFTERNOON TO EDUCATE PT AND FAMILY. PT UP WITH 1 ASSIST WALKER AND GAIT BELT. PT AMBULATED WITH PHYSICAL THERAPY THIS AM. TOLERATED WELL. PT TOLERATING CLEAR LIQUID DIET WELL. PT DENIES ANY NAUSEA OR VOMITING. AM ASSESSMENT CHARTED. MEDICATIONS PER JUL. PT REPOSITIONED EVERY 2 HOURS WITH REMINDERS. HOURLY ROUNDING OBSERVED. BED IN LOW POSITION. BED ALARM IN PLACE. FALL PRECAUTIONS IN PLACE. CALL LIGHT WITHIN REACH. WILL CONTINUE PLAN OF CARE.
[2017-07-28 11:36] VITALS: BP 155/83
[2017-07-28 15:16] VITALS: BP 155/69
--- NOTE | 2017-07-28 15:30 | NUR ---
OSTOMY NURSE-PATIENT NOW 5 DAYS POST-OP FOLLOWING EXPLORATORY LAPAROTOMY, SIGMOIDECTOMY, & COLOSTOMY FORMATION ON 07/23/[address] RITCHIE FOR PEFORATED SIGMOID DIVERTICULITIS. ABDOMEN ROUNDED AND SLIGHTLY DISTENDED, SOFT. DRESSING INTACT TO MIDLINE ABDOMINAL INCISION - WAS JUST CHANGED, SO LEFT INTACT. COLOSTOMY POUCH INTACT TO LLQ WITH SMALL AMOUNT OF LOOSE DARK BROWN STOOL. STOMA APPROXIMATELY 1 1/2 INCHES, BEEFY RED, MOIST AND MODERATELY EDEMATOUS. MUCOCUTANEOUS INCISION WELL APPROXIMATED. PERISTOMAL SKIN INTACT. INSTRUCTED PATIENT, AND 'S SISTER ON EMPTYING AND CHANGING POUCH. THEY WERE ALL ATTENTIVE, AND VERY SUPPORTIVE. THEY ASKED SEVERAL APPROPRIATE QUESTIONS. PATIENT ENROLLED IN [employer] PROGRAM, AND HAS INITIAL SUPPLIES AND COLOSTOMY TEACHING PACKET AT BEDSIDE. HE ANTICIPATES RETURNING HOME ON DISCHARGE, SO WILL NEED HOME HEALTH FOLLOW-UP.
--- NOTE | 2017-07-28 18:52 | NUR ---
NO ACUTE CHANGES THROUGHOUT SHIFT. REFER TO CHARTING. PT CONTINUES TO TRACE SR ON THE [place] ARCHITECT. RATE IN THE 60-70'S. TOLERATING PO CARDIZEM. CARDIOLOGY SIGNED OFF. PT DIET ADVANCED TO FULL LIQUIDS FOR DINNER. PT TOLERATED FULL LIQUIDS WELL WITH NO NAUSEA OR VOMITING NOTED. PT TO HAVE ABDOMINAL XRAY IN AM 07/29. ABD PLACED TO MIDLINE INCISION DUE TO SLIGHT DRAINAGE. WILL CONTINUE TO MONITOR CLOSELY. PT AMBULATED WITH PHYSICAL THERAPY IN H[place]AY TODAY WITH WALKER AND GAIT BELT, TOLERATED WELL. ANEESH KENT, OSTOMY NURSE HERE TO EDUCATE PT AND PT FAMILY THIS AFTERNOON. COLOSTOMY CHANGED TODAY BY ANEESH KENT. COLOSTOMY TO DEPENDENT DRAINAGE. PT CONTINUES TO BE ON 2L NC SAT UPPER 90'S. DENIES ANY PAIN OR SHORTNESS OF BREATH. PT UP TO CHAIR FOR MEALS. IVF. MEDICATIONS PER JUL. PT REPOSITIONS SELF WITH REMINDERS. HOURLY ROUNDING OBSERVED. BED IN LOW POSITION. BED ALARM IN PLACE. FALL PRECAUTIONS IN PLACE. CALL LIGHT WITHIN REACH. WILL CONTINUE PLAN OF CARE.
[2017-07-28 22:27] VITALS: BP 156/72
[2017-07-29] VITALS: BP 147/76
[2017-07-29 04:26] VITALS: BP 156/74
--- NOTE | 2017-07-29 04:34 | NUR ---
ASSUMED PT CARE AT 1930, PT IS A&OX4, TRACING NSR ON THE MONITOR, ON 2L NC SATTING MDI TO HIGH 90'S. PT DENIES ANY PAIN OR NEEDS THIS SHIFT, PT IS ON FL DIET, TOLERATING IT WELL, DENIES ANY N OR V THIS SHIFT. IVF INFUSING PER JUL. PT HAS A COLOSTOMY TO Q, COLOSTOMY IS PUTTING OUT STOOL. MIDLINE ABD INCISION CLOSED WITH ROSEANNA AND COVERED BY ABD. PT SLEPT ON AND OFF THROUGHOUT THE NIGHT, BED IN LOW POSITION, CALL LILGHT IN REACH, BED ALARM ON, YELLOW ARM BAND AND SOCKS IN PLACE, HOURLY ROUNDING COMPELETED FOR PT SAFETY.
[2017-07-29 05:13] LABS: ABSOLUTE LYMPHOCYTES 0.4 thou/uL (0.8-5.3); ABSOLUTE MONOCYTES 1.1 thou/uL (0.0-1.2); ABSOLUTE NEUTROPHILS 4.3 thou/uL (1.6-8.1); BASOPHILS 0.1 %; HEMATOCRIT 21.7 % (42.0-52.0); HEMOGLOBIN 7.5 gm/dL (14.0-18.0); LYMPHOCYTES 6.4 %; MCH 31.7 pg (26.0-34.0); MCHC 34.7 g/dL (28.0-37.0); MCV 91.2 fL (80.0-100.0); MONOCYTES 18.6 %; MPV 8.7 fl. (7.2-11.1); NUCLEATED RBCS 0 /100WBC; PLATELET COUNT* 54 thou/uL (150-400); POLYS 74.9 %; RBC 2.38 mil/uL (4.50-6.00); RDW-CV 14.4 % (10.5-14.5); WBC 5.8 thou/uL (4.0-11.0)
[2017-07-29 05:26] LABS: CALCIUM 8.1 mg/dL (8.5-10.1); CREATININE 1.3 mg/dL (0.6-1.3); POTASSIUM 3.6 mmol/L (3.5-5.1); TOTAL BILIRUBIN 0.4 mg/dL (<0.1-1.0); TOTAL PROTEIN 5.2 g/dL (6.4-8.2)
[2017-07-29 06:38] LABS: PREALBUMIN 15.7 mg/dL (18.0-35.7)
[2017-07-29 08:48] VITALS: BP 163/81
--- NOTE | 2017-07-29 10:15 | NUR ---
ASSUMED CARE OF PT AROUND 0730 THIS AM. REFER TO ASSESSMENT. PT HAS NO CONCERNS THIS AM. TOLERATING DIET. NO C/O N/V. VSS. PT TRANSFERRED FROM BED TO CHAIR WITH MINIMAL ASSIST, GB, AND WALKER. PT UP TO CHAIR FOR MEALS AND TOLERATING. NO OTHER CONCERNS AT THIS TIME. CLWR. WCTM.
[2017-07-29 12:22] VITALS: BP 128/63
--- NOTE | 2017-07-29 17:10 | NUR ---
PT PROGRESSING WELL TOWARDS GOALS. TOLERATED DIET THIS SHIFT. NO C/O N/V. NO C/O PAIN. NO DRAINAGE NOTED FROM ABDOMINAL INCISION THIS SHIFT. COLOSTOMY HAVING OUTPUT OF SOFT BROWN STOOL WITHOUT DIFFICULTY. IV ABTS ADMINISTERED ORDERED. NO OTHER CONCERNS AT THIS TIME. CLWR. WCTM.
[2017-07-29 17:32] VITALS: BP 138/78
[2017-07-29 20:00] VITALS: BP 120/90
[2017-07-30] VITALS (7 sets, daily range): BP systolic 117–159; BP diastolic 62–79
--- NOTE | 2017-07-30 04:15 | NUR ---
ASSUMED CARE OF PT AT 1900 ALERT AND ORIENTED, VS AND ASSESSMENT STABLE. OSTOMY INTACT DRAINING SMALL AMOUT SOFT BROWN STOOL. MIDLINE ADB PAD CDI. PT DENIED ANY COMPLAINTS AND SLEPT THROUGH THE NIGHT. WILL MONITOR.
[2017-07-30 04:33] LABS: ABSOLUTE LYMPHOCYTES 0.5 thou/uL (0.8-5.3); ABSOLUTE MONOCYTES 1.3 thou/uL (0.0-1.2); ABSOLUTE NEUTROPHILS 5.3 thou/uL (1.6-8.1); BASOPHILS 0.1 %; HEMATOCRIT 20.8 % (42.0-52.0); HEMOGLOBIN 7.2 gm/dL (14.0-18.0); LYMPHOCYTES 7.5 %; MCH 31.3 pg (26.0-34.0); MCHC 34.5 g/dL (28.0-37.0); MCV 90.5 fL (80.0-100.0); MONOCYTES 17.7 %; MPV 9.2 fl. (7.2-11.1); NUCLEATED RBCS 0 /100WBC; PLATELET COUNT* 59 thou/uL (150-400); POLYS 74.7 %; RDW-CV 14.3 % (10.5-14.5); WBC 7.1 thou/uL (4.0-11.0)
[2017-07-30 04:52] LABS: ALBUMIN 1.9 g/dL (3.4-5.0); CREATININE 1.3 mg/dL (0.6-1.3); POTASSIUM 3.2 mmol/L (3.5-5.1); TOTAL BILIRUBIN 0.4 mg/dL (<0.1-1.0); TOTAL PROTEIN 5.1 g/dL (6.4-8.2)
[2017-07-30 04:53] LABS: MAGNESIUM 1.6 mg/dL (1.8-2.4); PHOSPHORUS* 3.3 mg/dL (2.5-4.9)
--- NOTE | 2017-07-30 12:09 | NUR ---
PT UP AMBULATING IN ROOM FOR ABOUT 10 MINUTES TODAY. ABLE TO GIVE SELF BED BATH AT THIS TIME WELL. MANDY.
--- NOTE | 2017-07-30 16:41 | NUR ---
PT PROGRESSING TOWARDS GOALS. POSSIBLE DC HOME TOMORROW W/ HH. PT VOICED ANXIETY ABOUT GOING HOME. DISCUSSED PT'S FEARS WITH HIM. VSS. LASIX DOSE GIVEN THIS SHIFT FOR FLUID RETENTION. PT HAVING ADEQUATE URINE OUTPUT. FAMILY AT BEDSIDE. ABT'S CHANGED TO ORAL THIS SHIFT. CLWR. WCTM.
--- NOTE | 2017-07-30 18:48 | NUR ---
PT NOTED TO BE ST W/ RATE IN THE 130-140'S. DR. LOPEZ NOTIFIED. ORDERED TO GIVE RYTHMOL HS DOSE EARLY. PT GIVEN DOSE AND THEN CONVERTED TO AFIB W/ RATE REMAINING AROUND 115-120'S. PT STARTED ON CARDIZEM GTT THIS EVENING. NO CARDIZEM BOLUS GIVEN. STARTED AT 5 MG/HR. NO OTHER CONCERNS AT THIS TIME. CLWR. WCTM.
[2017-07-31 00:09] VITALS: BP 129/60
[2017-07-31 04:18] VITALS: BP 118/65
--- NOTE | 2017-07-31 04:30 | NUR ---
END SHIFT: PT RESTED WELL. ADEQUATE OUTPUT FROM COLOSTOMY. PT WAS HAVING HESITENCY AND RETENSION WITH URINATION- STRAIGHT CATH ORDERED WITH GOOD RESULT. PT HAS VOIDED MULTIPLE TIMES SINCE. HR HAS INCREASED OVER SHIFT DESPITE CARDIZEM GTT. PT WITH NO REPORTS OF CHEST PAIN. SAFETY PRECAUTIONS IN PLACE. CALL LIGHT IN REACH. WILL CONT TO MONITOR.
[2017-07-31 04:41] LABS: ABSOLUTE LYMPHOCYTES 0.6 thou/uL (0.8-5.3); ABSOLUTE NEUTROPHILS 5.3 thou/uL (1.6-8.1); HEMATOCRIT 21.3 % (42.0-52.0); HEMOGLOBIN 7.4 gm/dL (14.0-18.0); MCH 31.2 pg (26.0-34.0); MCHC 34.8 g/dL (28.0-37.0); MCV 89.8 fL (80.0-100.0); MONOCYTES 14.5 %; MPV 9.3 fl. (7.2-11.1); NUCLEATED RBCS 0 /100WBC; PLATELET COUNT* 91 thou/uL (150-400); POLYS 76.5 %; RBC 2.38 mil/uL (4.50-6.00); RDW-CV 14.3 % (10.5-14.5)
--- NOTE | 2017-07-31 04:45 | NUR ---
SPOKE WITH DR LOPEZ ABOUT EKG CHANGES. ORDERS TO RE CONSULT CARDIOLOGY. PT IS STABLE, HR 140'S. NO PAIN. EKG SHOWS ECTOPIC ATRIAL TACHYCARDIA. NO ORDERS FOR TROPONINS PER DR LOPEZ. WILL CONT TO MONITOR
[2017-07-31 05:23] LABS: CREATININE 1.4 mg/dL (0.6-1.3); MAGNESIUM 1.5 mg/dL (1.8-2.4); POTASSIUM 3.3 mmol/L (3.5-5.1); TOTAL BILIRUBIN 0.3 mg/dL (<0.1-1.0); TOTAL PROTEIN 5.5 g/dL (6.4-8.2)
[2017-07-31 08:00] VITALS: BP 116/74
--- NOTE | 2017-07-31 08:58 | NUR ---
ASSUMED CARE OF PT THIS AM AROUND 0715- HOGSHEAD SALVAGE IN PLACE ORDERED, TRACING ST THIS AM- UPON ASSESSMENT PT NOTED TO BE UP IN BED SIDE CHAIR- GOOD PO INTAKE NOTED THIS AM WITH BREAKFAST- PT A&O X4- CONTINENT BLADDER, USING URINAL AT BED SIDE- ASSIST X1 WITH TRANSFERS- LCTA, RESP EVEN AND [id number], O2 SAT 98% ON 2L VIA NC- PRODUCTIVE COUGH NOTED THIS AM- ABDOMEN SOFT/ROUND/NON-TENDER, BS X4 QUADS- MIDLINE INCISSION WELL APPROXIMATED WITH ROSEANNA, PINKNESS NOTED, NO DRAINAGE- LLQ COLOSTOMY NOTED WITH LIGHT BROWN SOFT STOOL NOTED, STOMA BEEFY RED ANDN APPROPRIATE- GROSS EDEMA NOTED TO SCROTUM, ICE TO SITE PRN FOR SWELLING AND COMFORT- IV NOTED TO RIGHT HAND INTACT, CARDIZEM INFUSING AT 5ML PRESCIBED-PT DENIES ANY C/O PAIN/DISCOMFORT AT THIS TIME- CALL LIGHT AND PERSONAL BELONGINGS WITH IN REACH- HOURLY ROUNDS IN PLACE R/T SAFETY/NEEDS- ALL NEEDS MET AT THIS TIME- WCTM
--- NOTE | 2017-07-31 09:54 | NUR ---
CM spoke with Pt regarding disposition, Pt plans to go home with HH and the support of his dtrs and granddtr. Pt plans to pay granddtr to assist him at home. Pt will speak with family regarding HH choice. Following.
[2017-07-31 10:34] LABS: MAGNESIUM 1.6 mg/dL (1.8-2.4); POTASSIUM 3.6 mmol/L (3.5-5.1)
[2017-07-31 11:49] VITALS: BP 132/68
--- NOTE | 2017-07-31 14:51 | EKG ---
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 : 1935 Requested By: Boone Hinkle Order Number: [id number] Christi WHITLEY: Ever Strauss Measurements Intervals [place] Rate: 140 P: 249 ME: 109 QRS: 7 QRSD: 83 T: 203 QT: 260 QTc: 397 Interpretive Statements Supraventricular tachycardia Inferior infarct, age indeterminate possible Compared to ECG 07/27/2017 01:35:02 SUPRAVENTRICULAR TACHYCARDIA has developed Electronically Signed On 07-31-2017 14:51:46 CDT by Ever Strauss [email or web address] <ELECTRONICALLY SIGNED> By: Ever Strauss MD, [facility] 07/31/17 1451 043 0 Ever Strauss MD, FACC /EPI
--- NOTE | 2017-07-31 14:55 | EKG ---
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1935 Requested By: Katie Case Order Number: [id number] Christi MD: Ever Strauss Measurements Intervals [place] Rate: 78 P: [place]: QRS: 1 QRSD: 100 T: 85 QT: 393 QTc: 448 Interpretive Statements Atrial flutter/fibrillation Abnormal inferior Q waves Borderline repolarization abnormality Compared to ECG 07/27/2017 01:35:02 rate has decreased Electronically Signed On 07-31-2017 14:55:13 CDT by Ever Strauss [email or web address] <ELECTRONICALLY SIGNED> By: Ever Strauss MD, [facility] 07/31/17 1455 45 45 Ever Strauss MD, FAC /EPI
[2017-07-31 16:03] VITALS: BP 137/67
--- NOTE | 2017-07-31 16:24 | NUR ---
PT MELBA RESTING IN BED, AT SIDE VISITING- NYLON HOT WIRE CUTTER IN PLACE ORDERED, TRACING A-FIB- CARDIZEM INCREASED TO 10 @ 1025 PER LACY, LAUNDRY HOUSEKEEPING AIDE WITH CARDIOLOGY REQUEST AT 1025- RYTHMOL INCREASED FROM BID TO TID- SECOND DOSE GIVEN AROUND 1300- HR NOTED A-FIB, WITH RATES 60-70'S CARDIZEM DECREASED TO 7ML/HR AT 1445- K+ REDRAW AT 1030 NOTED TO BE 3.6, MG REDRAW NOTED TO BE 1.6 AND REPLACED X2 THIS SHIFT PER PROTOCOL WITH REDRAW SCHEDULED FOR 1999- PT REPORTED TO HAVE HAD 800CC RETENTION ON PRIOR SHIFT- PT REPORTED HAVING TROUBLE URINATING THIS SHIFT, BLADDER SCAN REVEALED 609CC- NOTIFED WELL FABIOLA BARNES- ORDERS RECIEVED FOR CADENA TO BE PLACED, WITH F/U WITH IN 1-2 WEEKS FOR VOIDING TRIAL- 16 F CADENA PLACED AT 1500 THIS SHIFT, AND IS D/D CLEAR YELLOW URINE- PT REPORTS INSTANT RELIEF WITH CADEAN PLACEMENT- NO PROBLEMS NOTED WITH CADENA PLACEMENT- SCROTUM EDEMA NOTED, ELEVATION WITH ICE IN PLACE- GOOD PO INTAKE NOTED WITH MEALS- UP WORKING WITH PT THIS SHIFT PRESCIBED, TOLERATING WELL- PT DENIES ANY C/O PAIN/DISCOMFORT AT THIS TIME- CALL LIGHT AND PERSONAL BELONGINGS WITH IN REACH- ALL NEEDS MET AT THIS TIME-[facility]
[2017-07-31 20:00] VITALS: BP 144/61
[2017-08-01 00:12] VITALS: BP 139/71
[2017-08-01 04:00] VITALS: BP 141/66
--- NOTE | 2017-08-01 04:46 | NUR ---
ASSUMED PT CARE AT 1930, NURSING ASSESSMENT COMPLETED AT START OF SHIFT, TRACING AFIB WITH HR IN THE 7OS-90'S THIS SHIFT. PT CONTINUES ON CARDIZEM DRIP AT 5 MG/HR. DENIES PAIN THIS SHIFT. MIDLINE INCISION CLEAN,DRY, WELL APPROXIMATED, NO DRAINAGE NOTED. [address] COLOSTOMY TO LLQ WITH PINK STOMA. HOURLY ROUNDING COMPLETED, CALL LIGHT WITHIN REACH. PT PROGRESSING TOWARDS GOALS THIS SHIFT.
[2017-08-01 05:28] LABS: HEMATOCRIT 21.9 % (42.0-52.0); HEMOGLOBIN 7.6 gm/dL (14.0-18.0); MCH 31.4 pg (26.0-34.0); MCHC 34.8 g/dL (28.0-37.0); MCV 90.3 fL (80.0-100.0); MPV 9.1 fl. (7.2-11.1); NUCLEATED RBCS 0 /100WBC; PLATELET COUNT* 138 thou/uL (150-400); RBC 2.43 mil/uL (4.50-6.00); RDW-CV 14.5 % (10.5-14.5); WBC 7.5 thou/uL (4.0-11.0)
[2017-08-01 05:54] LABS: CALCIUM 8.3 mg/dL (8.5-10.1); CREATININE 1.3 mg/dL (0.6-1.3); MAGNESIUM 2.1 mg/dL (1.8-2.4); PHOSPHORUS* 3.3 mg/dL (2.5-4.9); POTASSIUM 3.8 mmol/L (3.5-5.1)
[2017-08-01 06:13] LABS: ABSOLUTE LYMPHOCYTES 0.7 thou/uL (0.8-5.3); ABSOLUTE MONOCYTES 0.2 thou/uL (0.0-1.2); ABSOLUTE NEUTROPHILS 6.6 thou/uL (1.6-8.1); ANISOCYTOSIS 1+; PLATELET ESTIMATE DECREASED; POIKILOCYTOSIS 1+
[2017-08-01 07:59] VITALS: BP 145/83
--- NOTE | 2017-08-01 10:06 | NUR ---
Spoke with Pt regarding disposition. Pt informed that he spoke with Dr Duong and is now in agreement with going to skilled. Faxed referral to [facility], [place]. Per onc and hospitalist, Pt's chemo is on hold presently. Dr Smith states that Pt may be ready to dc today, pending cardio clearance. Awaiting decision to accept. Following.
--- NOTE | 2017-08-01 10:58 | OP ---
[facility] [address] [place] [address] OPERATIVE REPORT Name: CAROLANN KELLOGG Room: [address] IN M.R.#: [id number] Admission: 07/23/17 Attend Phys: Josephine Mcfarlane Discharge: Date of : 35 Report #: [id number] THIS REPORT FOR: //name// CC: Uziel Cedeno Christina Hinkle DATE OF SERVICE: 07/23/2017 PREOPERATIVE DIAGNOSES: Perforated viscus with intra-abdominal free air, history of renal cell carcinoma. POSTOPERATIVE DIAGNOSES: Perforated diverticulitis with free intraperitoneal air and history of renal cell carcinoma with possible metastasis. PROCEDURE: Emergency exploratory laparotomy with sigmoid colon resection and Madina's colostomy. SURGEON: Uziel Salas DO LANDSCAPE PHOTOGRAPHER: Jordy Castro DO, PGY2 resident. SECOND LANDSCAPE PHOTOGRAPHER: Student, MS3. ANESTHESIA: General endotracheal. ESTIMATED BLOOD LOSS: Less than 30 mL. COMPLICATIONS: None. INDICATIONS FOR PROCEDURE: This is an 82-year-old gentleman who is being treated for metastatic renal cell carcinoma, currently on chemotherapy, presented today to the Emergency Room with acute onset of lower abdominal pain, which started after straining to have a bowel movement. He was noted on CT to have free intraperitoneal air and on physical examination, he was found to have a rigid, tender abdomen with positive rebound. Even though he was currently on chemotherapy and his white blood cell count was less than 1, he needed to go to surgery for the following procedure. DESCRIPTION OF PROCEDURE: After obtaining proper consents and discussing risks and complications with the patient and his , he was taken to the operating room, laid on the supine position, administered general endotracheal anesthetic. He was then prepped and draped in the usual fashion. [place] [address] OPERATIVE REPORT Name: CAROLANN KELLOGG Room: [address] IN [facility]#: [id number] Admission: 07/23/17 Attend Phys: Josephine Mcfarlane Discharge: Date of : 35 Report #: [id number] inserted. We then performed a timeout and confirmed the appropriate patient and procedure. We then made an infraumbilical midline incision from the umbilicus extending down to the pubic symphysis with a #10 scalpel blade. This was carried down through the skin into the subcutaneous tissue using electrocautery for hemostasis. Once the fascia was encountered, it was incised along the midline, grasped and elevated. The peritoneum was then bluntly opened using a hemostat. Once within the peritoneal cavity, we then extended the peritoneal and fascial opening for the entire length of the incision. We then explored the abdomen and immediately identified some cloudy fluid. There was also noted to be quite a bit of air in the mesentery of the sigmoid colon and also in the omentum and in the retroperitoneal space. We immediately identified a black area consistent with bowel perforation. This was located just to the left of midline and was along the sigmoid colon, which was markedly redundant as well. We explored the remainder of the abdomen and found no gross abnormalities other than on palpation of the left lobe of the liver, the patient did have an approximately 2 cm firm mass. I was not able to visualize this as there was a large amount of omental fat, but I was able to palpate it. He was also noted to have a distended gallbladder. The entire small bowel appeared normal. At this point, we elected to perform a sigmoid colon resection of this area that was perforated. The sigmoid colon was quite redundant and there were some attachments along the left lateral abdominal wall and also along the superior surface of the bladder, which were taken down using electrocautery cautiously to free the sigmoid colon. Once it was completely freed, we then extended up along the left pericolic gutter as well and mobilized the left colon. I then chose a point distally where there was free of disease and very little inflammation. I then opened an avascular window in the mesentery. We then fired a ARIK 80 across this area. I then used the LigaSure Impact device to sequentially clamp and divide the mesentery, extending more proximally until we were well proximal to the area of perforation in a fairly diseased free area. I then used a ARIK 80 to divide the colon and the specimen was passed off. We then assured hemostasis. Once hemostasis was assured, I then brought the descending colon out as a colostomy by opening a circular window in the skin and in the left abdomen just below the level of the umbilicus, lateral to the rectus muscles. This opening was extended all the way down to the fascia and then a cruciate incision was made. We then brought the colon up through that hole. It was then secured in place to the peritoneum using a 2-0 PDS suture. Once this was all complete, we then copiously irrigated the abdominal cavity and again checked all the cut surfaces to assure there was no bleeding. Then, we performed a sponge, needle and instrument count that was all correct. We then closed the peritoneum and fascia using a running #1 looped PDS suture. Subcutaneous tissues were closed using 3-0 Vicryl suture. The skin was closed using metallic skin clips. We then turned our attention to the colostomy in the left lower abdomen, we then first attached the serosa to the fascia using a 2-0 Prolene suture. The colon was then opened and the stoma was created by using interrupted 3-0 Vicryl sutures to suture the serosa and mucosa to the skin. Prior to closing the abdominal cavity, we had also placed 2 stay sutures on [place] [address] OPERATIVE REPORT Name: CAROLANN KELLOGG Room: [address] IN [facility].#: [id number] Admission: 07/23/17 Attend Phys: Josephine Mcfarlane Discharge: Date of : 35 Report #: [id number] just in case we need to define that for reversing this colostomy at some later time. Once the stoma was completed, stoma pouch was placed. Sterile dressings were then placed and the patient was awakened in the operating room and transported to the Intensive Care Unit in guarded condition. <ELECTRONICALLY SIGNED> By: Uziel Salas DO 08/01/17 1058 0804 [id number] Salas DO /nt
[2017-08-01 11:38] VITALS: BP 145/80
--- NOTE | 2017-08-01 11:44 | NUR ---
This RN agrees with the assessment of SN. Pedro
--- NOTE | 2017-08-01 16:32 | NUR ---
ASSUMED CARE OF PATIENT THIS AM AT 0730. PATIENT IS ALERT AND ORIENTED X 4. HE DENIES PAIN TODAY. PATIENT HAS BEEN UP TO THE CHAIR X [address] IN TO ROUND AND DISCHARGE ORDERS WRITTEN. PLANS TO TRANSFER TO [facility] THIS EVENING. PATIENT HAS A CADENA CATH TO . COLOSTOMY BAG IS PRESENT AND INTACT. PATIENT HAS BEEN ON TELE MONITOR THROUGHOUT THE DAY. HEART RYHTHM AFIB WITH A RATE OF 70'S TO LOW 100"S. WAITING FOR BED AVAILABILITY.
[2017-08-01 20:00] VITALS: BP 151/69
[2017-08-02] VITALS: BP 177/98
[2017-08-02 01:59] VITALS: BP 153/90
[2017-08-02 04:00] VITALS: BP 143/78
--- NOTE | 2017-08-02 04:07 | NUR ---
Patient rested in bed. No acute changes. Patient did not show sings of distress. Patient vitals were stable. Possible dc later today. Patient had an decrease pluse in left foot. Hourly rounding, call light within reach, bed alarm placed, fall precautions. Patient hr afib 80's to low 100's.
--- NOTE | 2017-08-02 07:00 | NUR ---
PT OBSERVED TO HAVE SMALL AMOUNT AMOUNT OF SEROSENGUENOUS DRAINAGE FROM MIDLINE INCISION SITE THIS SHIFT. PT DENIES PAIN, AREA CLEANED WITH NS, DRIED AND COVERED WITH NONADHERENT DRESSING AT THIS TIME.
[2017-08-02 08:08] VITALS: BP 150/84
[2017-08-02] MEDS ORDERED: AUGMENTIN 875-1 EACH PO (11:14)
[2017-08-02] MEDS ORDERED: CARDIZEM CD180 MG PO (11:23)
[2017-08-02] MEDS ORDERED: FLOMAX0.4 MG PO (11:27)
[2017-08-02 11:39] VITALS: BP 150/84
--- NOTE | 2017-08-02 11:40 | NUR ---
Pt discharging to [facility] today, facility to picking supervisor at 1pm. Faxed dc orders. Chart copied. Nurse report number provided, . Updated dtr in room.
--- NOTE | 2017-08-02 11:45 | NUR ---
I HAVE REVIEWED THE STUDENT'S CHARTING.
--- NOTE | 2017-08-02 12:00 | NUR ---
AGREE WITH ASSESSMENT DOCUMENTATION ENTERED BY SN TODAY. PT A & O X4 AND ABLE TO COMMUNICATE NEEDS TO STAFF. AFIB ON TELE MONITOR, VS WNL W/O C/O PAIN, SOA OR DISTRESS. GAUZE/ABD TO MIDLINE INCISION WITH SERSANGUINEOUS DRNG. NEEDED ITEMS AND CALL IGHT WITHIN REACH.
[2017-08-02 12:22] VITALS: BP 129/78
--- NOTE | 2017-08-02 12:57 | NUR ---
I HAVE REVIEWED THE STUDENT'S CHARTING.
--- NOTE | 2017-08-02 13:10 | NUR ---
PT WITH COMPLETE DC ORDER. REVIEWED DC INSTRUCTIONS AND MED LIST WITH PT/DTR. QUESTIONS ANSWERED TO SATISFACTION OF PT/DTR. PT'S IV AND MONITOR DC'D. PT/DTR IN POSSESSION OF ALL PT'S BELONGINGS. PT LEFT UNIT WITH TRANSPORTER VIA . TRANPORTED BY MEHRAN SELBY TO [facility] BY TRANSPORTER.
--- NOTE | 2017-08-02 13:48 | CON ---
[address] [address] CONSULTATION Name: CAROLANN KELLOGG Room: [address] IN M.R.#: [id number] Admission: 07/23/17 Attend Phys: Josephine Mcfarlane Discharge: 08/02/17 Date of : 35 Report #: [id number] THIS REPORT FOR: //name// CC: Uziel Hinkle DATE OF SERVICE: 07/25/2017 CONSULTING PHYSICIAN: Dr. Duong. REASON FOR NEPHROLOGY CONSULTATION: Acute renal failure, solitary kidney. REASON FOR ADMISSION AND CHIEF COMPLAINT: Right-sided abdominal pain. 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 The patient was having constipation and when he was trying to strain to have a bowel movement, he had a sudden onset of left-sided abdominal pain. The patient was found to have free air under his peritoneum when he came to the ER and he was taken on 07/23/2017 emergently for an ex lap and a colostomy creation and bowel resection. His creatinine was 1.3 on admission, but it went up to 1.6 yesterday on 07/24/2017 and it is 1.8 today and hence, Nephrology has been consulted. He has had intermittent episodes of hypotension. His urine output has been decent, he has had about 1.4 liters of urine output in the last 24 hours. He also has history of benign prostatic hypertrophy, currently has a Bernal catheter, is on Flomax and finasteride. The patient follows with Dr. Skinner, urologist, pretty regularly. Now, his blood pressure is more stable. He also has leukocytosis today, but he received a dose of Neupogen since he is receiving chemotherapy. The patient failed treatment with Keytruda and stopped taking it around May of this year and has been on carboplatin and gemcitabine and has had about two infusions of that and next infusion was due yesterday. Hematology is closely following the patient as well. The patient was also getting empiric antibiotic treatment with vancomycin and Zosyn. The patient's right kidney was removed because of her renal cell carcinoma in 2014 and after that in 2016, he was diagnosed with metastases to lungs and ribs, and it seems like the histology was consistent with papillary cell cancer. The patient states that he also had some tumors in his bladder, which were resected at 2 different times; the last time, he was told that his bladder is free of any tumor. The patient is currently having some back pain because of his position in bed. He is not having any shortness of breath and he is also eating and drinking. He is hard of hearing. He does not take any NSAIDs. No ADEEL inhibitors or ARBs, no history [place] [address] CONSULTATION Name: CAROLANN KELLOGG Room: [address] IN ..#: [id number] Admission: 07/23/17 Attend Phys: Josephine Mcfarlane Discharge: 08/02/17 Date of : 35 Report #: [id number] ALLERGIES: NIACIN. PAST MEDICAL HISTORY: Includes a history of renal cell carcinoma status post right-sided nephrectomy and metastases to lungs and ribs, history of asthma, MS 20 years ago, and arrhythmia. He has atrial fibrillation. PAST SURGICAL HISTORY: Right nephrectomy, umbilical hernia repair. FAMILY HISTORY: Not relevant to the current situation. SOCIAL HISTORY: He does not smoke anymore, use alcohol or recreational drugs, and has a very supportive . HOME MEDICATIONS: These were reviewed. PHYSICAL EXAMINATION: VITAL SIGNS: Blood pressure is 114/57, pulse ox 93% on 2 liters nasal cannula, respiratory rate 14, temperature 36.8, pulse rate 61. GENERAL: He is alert, oriented, frustrated because he lost one of his hearing aids. HEAD, EYES, EARS, NOSE, THROAT: Mucous membranes are moist. NECK: No JVD. LUNGS: Diminished breath sounds, but no crackles or wheezing. CARDIOVASCULAR: S1, S2 normal. No murmurs heard. ABDOMEN: Soft. He has some incisional tenderness. He has a midline dressing present, which is intact and his ostomy is intact as well. Bowel sounds are diminished. EXTREMITIES: He has no lower extremity edema. Symmetrical extremities. NEUROLOGIC FUNCTION: Gross neurological function is intact. He is oriented x 3. PSYCHIATRIC: Mood is also normal. LABORATORY DATA: From 07/27/2017, WBC was 23.5, hemoglobin was 8.0. Sodium was 143, potassium was 4.7, creatinine was 1.8, and CO2 was 26. Other labs are reviewed. IMAGING: Abdominal CT scan was reviewed. ASSESSMENT AND PLAN: 1. Acute renal failure likely because of ischemic ATN: The patient has acute renal failure likely because of the hypotensive episodes, surgery 2 days ago. His blood pressure is better now. I would maintain him on normal saline at 50 mL an hour for today. His urine output is very good. Hopefully, creatinine will start getting better soon. Do not hold off on any diuretics, as he is not looking fluid overloaded. Dose all his medications for a GFR of less than 30 mL per minute. Vancomycin level should be checked daily and dose should be held if [facility] [address] [place] [address] CONSULTATION Name: CAROLANN KELLOGG Room: [address] IN .R.#: [id number] Admission: 07/23/17 Attend Phys: Joesphine Mcfarlane Discharge: 08/02/17 Date of : 35 Report #: [id number] the level is more than 20. Dosage should be decreased to every 12 hours. He has a solitary left kidney. Try to keep his mean arterial pressure more than 65-70. 2. History of renal cell carcinoma and mets to his ribs and lungs: Chemotherapy as per Hematology is on hold right now. The patient has a complex cyst in his left kidney and as per the patient, he has never been told that he has anything wrong with his left kidney. We will consult Urology to get this evaluated as well. 3. Benign prostatic hypertrophy: He is on Flomax and finasteride and he has a Bernal with good urine output for now. 4. Hypertension: Keep his blood pressure decent and mean arterial pressure more than 65-70. This is required for better renal perfusion. 5. Acute descending colon perforation, status post exploratory laparotomy, colon resection, colostomy creation: Surgery is following the patient. The patient is doing well from this perspective. 6. Atrial fibrillation with rapid ventricular response: Heart rate is now better, Cardiology is on board. I explained to the patient and his that his creatinine should start getting better soon, but in case if it does not get better and keeps getting worse, I asked them what their thoughts were on dialysis. The patient said that if he missed dialysis, he wants to go ahead and do it. The patient's did not think that dialysis will be a good idea with the patient being on palliative chemotherapy. The patient's and the patient will have a discussion about this. Anyway, there is no acute need for dialysis. We will continue to follow. Thank you for this consultation. <ELECTRONICALLY SIGNED> By: Joanna Whiteside MD 08/02/17 1348 1030 [id number] Whiteside MD /nt
== END 2017-08-02 13:14 | DRG 329 ==
LOC: M.ERS 23:14 → M.SUR 23:14 → M.TBA-CV 07-23 05:35 → M.SUR 07-23 05:35 → M.ICU 07-23 05:35 → M.TBA-CV 07-23 07:50 → M.ICU 07-23 07:50 → M.2W 07-25 18:14
PROVIDERS: Emergency Medicine; Internal Medicine; Internal Medicine Hematology & Oncology; Physician Assistant; Surgery; ADMIT Internal Medicine
PROC: 0DTN0ZZ Resection of Sigmoid Colon, Open Approach (ICD-10-PCS; principal; 2017-07-23)
PROC: 0D1N0Z4 Bypass Sigmoid Colon to Cutaneous, Open Approach (ICD-10-PCS; principal; 2017-07-23)
DX: K57.20 Diverticulitis of large intestine with perforation and abscess without bleeding (principal); R65.11 Systemic inflammatory response syndrome (SIRS) of non-infectious origin with acute organ dysfunction; E46 Unspecified protein-calorie malnutrition; D68.59 Other primary thrombophilia; D68.61 Antiphospholipid syndrome; E87.0 Hyperosmolality and hypernatremia; K56.7 Ileus, unspecified; N17.9 Acute kidney failure, unspecified; I48.91 Unspecified atrial fibrillation; E78.5 Hyperlipidemia, unspecified; J44.9 Chronic obstructive pulmonary disease, unspecified; D70.9 Neutropenia, unspecified; I25.10 Atherosclerotic heart disease of native coronary artery without angina pectoris; D70.1 Agranulocytosis secondary to cancer chemotherapy; N18.9 Chronic kidney disease, unspecified; N28.1 Cyst of kidney, acquired; D64.9 Anemia, unspecified; N50.89 Other specified disorders of the male genital organs; Z68.33 Body mass index [BMI] 33.0-33.9, adult; N40.1 Benign prostatic hyperplasia with lower urinary tract symptoms; R33.8 Other retention of urine; Z87.440 Personal history of urinary (tract) infections; Z85.528 Personal history of other malignant neoplasm of kidney; Z90.5 Acquired absence of kidney; Z85.118 Personal history of other malignant neoplasm of bronchus and lung; Z79.899 Other long term (current) drug therapy; Z88.8 Allergy status to other drugs, medicaments and biological substances; I25.2 Old myocardial infarction; Z98.61 Coronary angioplasty status; Z86.718 Personal history of other venous thrombosis and embolism; Z86.711 Personal history of pulmonary embolism

== ENCOUNTER 2017-11-02 17:32 | Inpatient (IN) | payer MEDICARE ==
[~2017-11-02] VITALS: Ht 180.3 cm; Wt 104.3 kg
[~2017-11-02 17:32] MED LIST changes: +AUGMENTIN 875-1 EACH PO; +CARDIZEM CD180 MG PO; +MS CONTIN15 MG PO
[2017-11-02 17:43] VITALS: BP 159/63
[2017-11-02 18:06] LABS: HEMATOCRIT 21.5 % (42.0-52.0); HEMOGLOBIN 7.2 gm/dL (14.0-18.0); MCH 31.5 pg (26.0-34.0); MCHC 33.6 g/dL (28.0-37.0); MCV 93.8 fL (80.0-100.0); MPV 7.2 fl. (7.2-11.1); NUCLEATED RBCS 0 /100WBC; PLATELET COUNT* 282 thou/uL (150-400); RDW-CV 15.9 % (10.5-14.5)
[2017-11-02 18:09] LABS: WBC 1.7 thou/uL (4.0-11.0)
[2017-11-02 18:13] LABS: CALCIUM 8.6 mg/dL (8.5-10.1); CREATININE 1.2 mg/dL (0.6-1.3); POTASSIUM 5.3 mmol/L (3.5-5.1)
[2017-11-02 18:23] LABS: ALBUMIN 2.9 g/dL (3.4-5.0); TOTAL BILIRUBIN 0.3 mg/dL (<0.1-1.0); TOTAL PROTEIN 6.5 g/dL (6.4-8.2)
[2017-11-02 18:36] LABS: ABSOLUTE LYMPHOCYTES 0.2 thou/uL (0.8-5.3); ABSOLUTE NEUTROPHILS 1.4 thou/uL (1.6-8.1)
[2017-11-02 18:38] LABS: ANISOCYTOSIS Occasional; HYPOCHROMASIA Occasional; OVALOCYTES Occasional; PLATELET ESTIMATE ADEQUATE
[2017-11-02 19:03] LABS: URINE BILIRUBIN NEGATIVE (Negative); URINE BLOOD NEGATIVE (Negative); URINE CLARITY CLEAR; URINE COLOR YELLOW; URINE GLUCOSE-RANDOM NEGATIVE (Negative); URINE KETONES NEGATIVE (Negative); URINE LEUKOCYTES-REFLEX NEGATIVE (Negative); URINE NITRITE-REFLEX NEGATIVE (Negative); URINE PROTEIN NEGATIVE (Negative); URINE UROBILINOGEN 0.2 E.U./dl (0.2-1.0)
[2017-11-02 21:00] VITALS: BP 137/63
[2017-11-03] MEDS ORDERED: COLACE100 MG PO (02:25)
[2017-11-03] MEDS ORDERED: CARBOPLATI10 MG/1 ML (02:27)
[2017-11-03] MEDS ORDERED: GEMZAR1 GM (02:27)
[2017-11-03 09:45] VITALS: BP 162/65
[2017-11-03 20:40] VITALS: BP 146/68
[2017-11-04 04:46] LABS: HEMATOCRIT 20.5 % (42.0-52.0); MCH 31.6 pg (26.0-34.0); MCHC 33.9 g/dL (28.0-37.0); MCV 93.4 fL (80.0-100.0); MPV 7.3 fl. (7.2-11.1); RBC 2.19 mil/uL (4.50-6.00); RDW-CV 15.7 % (10.5-14.5)
[2017-11-04 04:57] LABS: CALCIUM 8.4 mg/dL (8.5-10.1); CREATININE 1.1 mg/dL (0.6-1.3); MAGNESIUM 1.7 mg/dL (1.8-2.4); POTASSIUM 4.5 mmol/L (3.5-5.1)
[2017-11-04 05:04] LABS: HEMOGLOBIN 6.9 gm/dL (14.0-18.0); WBC 0.9 thou/uL (4.0-11.0)
[2017-11-04 07:02] VITALS: BP 143/61
[2017-11-04 16:00] VITALS: BP 145/66
[2017-11-05 04:17] LABS: HEMATOCRIT 22.2 % (42.0-52.0); HEMOGLOBIN 7.6 gm/dL (14.0-18.0); MCH 31.7 pg (26.0-34.0); MCHC 34.3 g/dL (28.0-37.0); MCV 92.4 fL (80.0-100.0); MPV 7.2 fl. (7.2-11.1); RBC 2.41 mil/uL (4.50-6.00); RDW-CV 15.7 % (10.5-14.5)
[2017-11-05 04:37] LABS: WBC 0.8 thou/uL (4.0-11.0)
[2017-11-05 05:43] LABS: CALCIUM 8.7 mg/dL (8.5-10.1); CREATININE 1.2 mg/dL (0.6-1.3); MAGNESIUM 1.8 mg/dL (1.8-2.4); POTASSIUM 4.8 mmol/L (3.5-5.1)
[2017-11-05 08:15] VITALS: BP 161/73
[2017-11-05] MEDS ORDERED: PROTONIX40 M2 PO (13:39)
[2017-11-05] MEDS ORDERED: FLAGYL500 MG PO (13:40)
[2017-11-05] MEDS ORDERED: CIPRO500 M1 PO (13:40)
[2017-11-05 13:53] VITALS: BP 161/73
--- NOTE | 2017-11-21 16:59 | CON ---
[address] [address] CONSULTATION Name: WILIAN KELLOGG Room: [address] IN ..#: [id number] Admission: 11/02/17 Attend Phys: Josephine Mcfarlane Discharge: 11/05/17 Date of : 35 Report #: [id number] THIS REPORT FOR: //name// CC: Wilian Hinkle DATE OF SERVICE: 11/04/2017 REASON FOR CONSULT: Abnormal CT, left lower quadrant abdominal pain and constipation. 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 He is neutropenic with WBC of 0.8. The patient has had history of colon perforation for which he has had sigmoid resection with colostomy in 07/2017. The patient was admitted to the hospital with left lower abdominal pain and constipation with decreased output from his colostomy site. CT of abdomen and pelvis had revealed evidence of colonic thickening proximal to the ostomy site. There was also mild fat stranding in this area. Since admission, the patient has been placed on MiraLax and starting to have looser stools. He reports that his left lower quadrant abdominal pain has completely resolved and denies fever, chills, nausea, vomiting, hematochezia or melena. PAST MEDICAL HISTORY: Significant for history of transitional cell carcinoma, bladder cancer, lung CA for which he is actively receiving chemotherapy, right nephrectomy, dyslipidemia, AFib, asthma, umbilical hernia repair, colonic perforation, status post sigmoid resection and colostomy, hypertension, and AFib. ALLERGIES: SIGNIFICANT TO NIACIN. MEDICATIONS: Please refer to hospital MAR. SOCIAL HISTORY: The patient may occasionally have an alcoholic beverage. He has remote history of tobaccoism, but does not smoke anymore. He is currently receiving chemotherapy for his lung CA with mets to his ribs. FAMILY HISTORY: Noncontributory. PHYSICAL EXAMINATION: VITAL SIGNS: Reveals blood pressure of 154/72, respirations 18, pulse 92, and [facility] [address] [place] [address] CONSULTATION Name: WILIAN KELLOGG Room: [address]#: [id number] Admission: 11/02/17 Attend Phys: Josephine Mcfarlane Discharge: 11/05/17 Date of : 35 Report #: [id number] temperature is 98.1. LUNGS: Clear to auscultation bilaterally. CARDIOVASCULAR: Regular rate. ABDOMEN: Soft. There is an ostomy bag in place with brownish stool with little lumps of harder stool in it. NEUROLOGIC: The patient is alert, oriented x 3. LABORATORY DATA: Reveal sodium of 142, potassium 4.8, BUN is 21, creatinine 1.2, glucose is 92. AST 32, ALT 37 with alkaline phosphatase of 83 and total bili of 0.3. WBC is 0.8 with hemoglobin of 7.6 and platelets of 238. IMAGING: As discussed above. ASSESSMENT AND PLAN: The patient with history of lung CA with mets to the bone, who is receiving chemotherapy. He presents with left lower quadrant abdominal pain and evidence of what appears to be colonic ischemia. He has been responding to MiraLax and having looser stool. There is no hematochezia or melena and his abdominal pain is completely resolved. We will be okay with discharge as his severe neutropenia limits us from looking into his colon. The patient will take MiraLax 17-34 grams daily and will call us with any problems. We will follow up with him in 2-3 weeks to assure that he is doing better. <ELECTRONICALLY SIGNED> By: Morgan Garduno MD 11/21/17 1659 0948 [id number] Garduno MD /nt
== END 2017-11-05 14:46 | disposition home or self-care (01) | DRG 371 ==
LOC: M.ERS 17:32 → M.3W 19:37 → M.TBA-ER 19:37 → M.3W 21:00
PROVIDERS: Family Medicine; Physician Assistant Surgical; ADMIT Internal Medicine
PROC: 30233N1 Transfusion of Nonautologous Red Blood Cells into Peripheral Vein, Percutaneous Approach (ICD-10-PCS; principal; 2017-11-04)
DX: A04.9 Bacterial intestinal infection, unspecified (principal); D61.810 Antineoplastic chemotherapy induced pancytopenia; Z93.3 Colostomy status; I48.91 Unspecified atrial fibrillation; J45.909 Unspecified asthma, uncomplicated; E78.5 Hyperlipidemia, unspecified; J44.9 Chronic obstructive pulmonary disease, unspecified; E87.5 Hyperkalemia; D64.9 Anemia, unspecified; Z87.440 Personal history of urinary (tract) infections; Z87.891 Personal history of nicotine dependence; Z85.528 Personal history of other malignant neoplasm of kidney; Z90.5 Acquired absence of kidney; Z85.51 Personal history of malignant neoplasm of bladder; Z85.118 Personal history of other malignant neoplasm of bronchus and lung; Z92.21 Personal history of antineoplastic chemotherapy; Z88.8 Allergy status to other drugs, medicaments and biological substances; Z79.899 Other long term (current) drug therapy

== ENCOUNTER → 2018-01-10 | Outpatient (CLI) | payer MEDICARE ==
[~2018-01-10] MED LIST changes: +CARBOPLATI10 MG/1 ML; +CIPRO500 M1 PO; +COLACE100 MG PO; +FLAGYL500 MG PO; +GEMZAR1 GM; +PROTONIX40 M2 PO
[2018-01-10 10:27] VITALS: BP 125/51; BP 136/52; BP 136/55
[2018-01-10 12:43] VITALS: BP 118/40; BP 136/52; BP 140/63; BP 145/52
== END ==
LOC: M.INFUS 09:03
DX: C67.9 Malignant neoplasm of bladder, unspecified (principal); R06.02 Shortness of breath

== ENCOUNTER → 2018-01-22 | Outpatient (CLI) | payer MEDICARE ==
[~2018-01-22] VITALS: Ht 180.3 cm; Wt 102.5 kg
[2018-01-22 08:33] VITALS: BP 136/63
[2018-01-22 08:36] LABS: HEMATOCRIT 24.8 % (42.0-52.0); HEMOGLOBIN 8.2 gm/dL (14.0-18.0); MCH 34.1 pg (26.0-34.0); MCHC 33.2 g/dL (28.0-37.0); MCV 102.6 fL (80.0-100.0); MPV 9.3 fl. (7.2-11.1); RBC 2.41 mil/uL (4.50-6.00); RDW-CV 21.1 % (10.5-14.5); WBC 3.5 thou/uL (4.0-11.0)
[2018-01-22 08:46] LABS: CALCIUM 8.5 mg/dL (8.5-10.1); CREATININE 1.4 mg/dL (0.6-1.3); POTASSIUM 4.2 mmol/L (3.5-5.1)
[2018-01-22 08:50] LABS: ALBUMIN 3.3 g/dL (3.4-5.0); TOTAL BILIRUBIN 0.4 mg/dL (<0.1-1.0); TOTAL PROTEIN 6.6 g/dL (6.4-8.2)
[2018-01-22 09:03] LABS: APTT 38.6 Seconds (25.0-31.3); INR 1.2; PROTIME 12.4 Seconds (9.20-11.50)
[2018-01-22 11:00] VITALS: BP 138/72
[2018-01-22 11:15] VITALS: BP 140/74
== END | disposition home or self-care (01) ==
LOC: M.INT 07:48
PROVIDERS: Radiology Vascular & Interventional Radiology
DX: Z45.2 Encounter for adjustment and management of vascular access device (principal); C34.91 Malignant neoplasm of unspecified part of right bronchus or lung; C34.92 Malignant neoplasm of unspecified part of left bronchus or lung; I48.91 Unspecified atrial fibrillation; J45.909 Unspecified asthma, uncomplicated; E78.5 Hyperlipidemia, unspecified; Z90.5 Acquired absence of kidney; Z98.890 Other specified postprocedural states; Z80.9 Family history of malignant neoplasm, unspecified; Z87.891 Personal history of nicotine dependence; Z85.528 Personal history of other malignant neoplasm of kidney; Z79.01 Long term (current) use of anticoagulants; Z79.891 Long term (current) use of opiate analgesic; Z86.73 Personal history of transient ischemic attack (TIA), and cerebral infarction without residual deficits; Z82.3 Family history of stroke; Z87.19 Personal history of other diseases of the digestive system; Z87.440 Personal history of urinary (tract) infections; Z88.8 Allergy status to other drugs, medicaments and biological substances

== ENCOUNTER → 2018-02-07 | Outpatient (CLI) | payer MEDICARE | LOC: M.RAD 14:37 | DX: C68.9 Malignant neoplasm of urinary organ, unspecified (principal); R05 Cough; J45.909 Unspecified asthma, uncomplicated; E78.5 Hyperlipidemia, unspecified; I48.91 Unspecified atrial fibrillation; J44.9 Chronic obstructive pulmonary disease, unspecified; Z87.891 Personal history of nicotine dependence; Z72.89 Other problems related to lifestyle ==

== ENCOUNTER → 2018-02-12 | Outpatient (CLI) | payer MEDICARE ==
[2018-02-12 14:35] VITALS: BP 136/68; BP 137/72; BP 138/64; BP 139/51
--- NOTE | 2018-02-12 16:14 | NUR ---
TIME: 15:55 T=97.8 P=64 R=18 B/P=137/72 SPO2=96%
[2018-02-12 16:53] VITALS: BP 136/68; BP 138/64; BP 143/70; BP 154/74; BP 162/72
--- NOTE | 2018-02-12 17:00 | NUR ---
PT ARRIVED TO OUR DEPARTMENT AT 1645. 1ST UNIT OF BLOOD DONE AND BEING FLUSHED THROUGH THE LINE. PT SETTLED INTO RECLINER. 20 MG LASIX GIVEN IVP. 2ND UNIT HUNG AT 1700.
--- NOTE | 2018-02-12 19:30 | NUR ---
1800:ASSUMED CARE OF PT. FROM Shaye SHEA, RN AND Dain ALMEIDA, RN. PT. IN RESTING COMFORTABLY IN RECLINER IN PREOP AREA (STARTED INFUSION IN THE INFUSION DEPT TODAY AND PT. CAME TO PREOP AT ~1645). PT. TOLERATING BLOOD TRANSFUSION WELL. RUNNING AT 180ML/HR. OFFERED PT. FOOD AND DRINK...HE DECLINED. 1922:PT. 2ND UNIT OF BLOOD WELL--DONE AT 1905. RT. CHEST PAC FLUSHED WITH 20ML OF NS AND THEN 5ML OF HEPARIN (100UNITS/ML). DEACCESSED AFTER THIS, GAUZE AND TAPE APPLIED. 1929:PT. LEFT VIA W/C IN STABLE CONDITION WITH ALL BELONGINGS. PUSHED OUT BY THIS RN. WAITING AT THE FRONT ENTRANCE. ALSO OF NOTE-PT. ASSISTED TO BATHROOM AT 1850 AND VOIDED.
== END ==
LOC: M.INFUS 12:47
DX: C67.9 Malignant neoplasm of bladder, unspecified (principal)

== ENCOUNTER → 2018-03-14 | Outpatient (CLI) | payer MEDICARE ==
[~2018-03-14] MED LIST changes: +CEFDINIR300 MG PO; +LIPITOR40 MG PO; +OMEPRAZOLE 20 M20 M1 PO; +PREDNISONE 20 M20 MG PO; +PRENATAL PLUS1 EAC5 PO; -PRENATAL WITH IRON PO
[2018-03-14 08:17] VITALS: BP 130/56; BP 130/60; BP 132/60; BP 133/55
[2018-03-14 10:24] VITALS: BP 132/60; BP 133/56; BP 134/68; BP 136/55; BP 138/68
== END ==
LOC: M.INFUS 03:03
DX: C67.9 Malignant neoplasm of bladder, unspecified (principal)

== ENCOUNTER → 2018-04-12 | Outpatient (CLI) | payer MEDICARE ==
[~2018-04-12] MED LIST changes: -CEFDINIR300 MG PO; -LIPITOR40 MG PO; -OMEPRAZOLE 20 M20 M1 PO; -PREDNISONE 20 M20 MG PO; -PRENATAL PLUS1 EAC5 PO; +PRENATAL WITH IRON PO
== END ==
LOC: M.LAB 04:33
PROVIDERS: Student in an Organized Health Care Education/Training Program
DX: D69.6 Thrombocytopenia, unspecified (principal); D64.9 Anemia, unspecified

== ENCOUNTER 2018-05-12 12:31 | Inpatient (IN) | payer MEDICARE ==
[~2018-05-12] VITALS: Ht 188 cm; Wt 97.1 kg
[~2018-05-12 12:31] MED LIST changes: +PRENATAL PLUS1 EAC5 PO; -PRENATAL WITH IRON PO
[2018-05-12 12:47] VITALS: BP 133/58
[2018-05-12] MEDS ORDERED: OMEPRAZOLE 20 M20 M1 PO (12:54)
[2018-05-12 13:45] LABS: ABSOLUTE LYMPHOCYTES 0.6 thou/uL (0.8-5.3); ABSOLUTE MONOCYTES 0.4 thou/uL (0.0-1.2); ABSOLUTE NEUTROPHILS 3.5 thou/uL (1.6-8.1); BASOPHILS 0.2 %; EOSINOPHILS 0.1 %; HEMATOCRIT 26.4 % (42.0-52.0); HEMOGLOBIN 8.9 gm/dL (14.0-18.0); LYMPHOCYTES 13.9 %; MCH 31.6 pg (26.0-34.0); MCHC 33.8 g/dL (28.0-37.0); MCV 93.6 fL (80.0-100.0); MONOCYTES 9.4 %; MPV 7.4 fl. (7.2-11.1); NUCLEATED RBCS 0 /100WBC; PLATELET COUNT* 167 thou/uL (150-400); POLYS 76.4 %; RBC 2.82 mil/uL (4.50-6.00); WBC 4.6 thou/uL (4.0-11.0)
[2018-05-12 13:49] LABS: ANION GAP 9 mmol/L (7-16); BUN 21 mg/dL (7-18); CALCIUM 8.7 mg/dL (8.5-10.1); CHLORIDE 103 mmol/L (98-107); CO2 28 mmol/L (21-32); CREATININE 1.4 mg/dL (0.6-1.3); GLUCOSE 104 mg/dL (70-99); POTASSIUM 4.1 mmol/L (3.5-5.1); SODIUM 140 mmol/L (136-145)
[2018-05-12 13:53] LABS: INR 1.5; PROTIME 15.1 Seconds (9.20-11.50)
[2018-05-12 14:00] LABS: ALBUMIN 2.8 g/dL (3.4-5.0); ALKALINE PHOSPHATASE 88 U/L (46-116); NT-PRO BRAIN NAT PEPTIDE 603 pg/mL (<300); SGOT 13 U/L (15-37); SGPT 12 U/L (30-65); TOTAL BILIRUBIN 0.7 mg/dL (<0.1-1.0); TOTAL PROTEIN 6.5 g/dL (6.4-8.2); TROPONIN-I LEVEL <0.06 ng/mL (<0.06)
[2018-05-12 16:00] VITALS: BP 142/63
[2018-05-12] MEDS ORDERED: LIPITOR40 MG PO (16:52)
--- NOTE | 2018-05-12 19:50 | NUR ---
PATIENT RESTING IN BED. PATIENT IS UP AD RASHEED IN ROOM. PATIENT HAS COMPLAINTS OF LEFT RIB PAIN, WORSE WITH COUGHING. DR HOPSON NOTIFIED X 2 ABOUT NEED FOR PAIN MEDICATION AND HOME MEDICATIONS, NO ORDERS AT THIS TIME. PATIENT FRUSTRATED BY DELAY, REASSURANCE GIVEN. PATIENT IS ON OXYGEN AT 2L/NC, DENIES ANY TROUBLE BREATHING. HAS FAIR APPETITE AND HAS DENIED ANY NAUSEA. NO OTHER CONCERNS/COMPLAINTS VOICED AT THIS TIME. CALL LIGHT WITHIN REACH. WILL CONTINUE TO MONITOR.
[2018-05-12 21:05] VITALS: BP 149/83
[2018-05-13] VITALS (8 sets, daily range): BP systolic 116–137; BP diastolic 49–69
[2018-05-13 04:34] LABS: ABSOLUTE MONOCYTES 0.5 thou/uL (0.0-1.2); ABSOLUTE NEUTROPHILS 3.2 thou/uL (1.6-8.1); BASOPHILS 0.1 %; EOSINOPHILS 0.2 %; WBC 4.4 thou/uL (4.0-11.0)
[2018-05-13 04:37] LABS: ABSOLUTE LYMPHOCYTES 0.7 thou/uL (0.8-5.3); HEMATOCRIT 24.4 % (42.0-52.0); HEMOGLOBIN 8.3 gm/dL (14.0-18.0); LYMPHOCYTES 15.2 %; MCH 32.1 pg (26.0-34.0); MCHC 34.1 g/dL (28.0-37.0); MONOCYTES 11.9 %; MPV 7.8 fl. (7.2-11.1); NUCLEATED RBCS 0 /100WBC; PLATELET COUNT* 150 thou/uL (150-400); POLYS 72.6 %; RDW-CV 17.9 % (10.5-14.5)
[2018-05-13 05:01] LABS: CALCIUM 8.7 mg/dL (8.5-10.1); CREATININE 1.3 mg/dL (0.6-1.3); POTASSIUM 4.1 mmol/L (3.5-5.1)
--- NOTE | 2018-05-13 10:06 | EKG ---
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: [place] : 1935 Requested By: Luís Hernandez Order Number: [id number] MD: Carolann [place] Measurements Intervals Foley Rate: 60 P: CO: QRS: 16 QRSD: 120 T: 68 QT: 401 QTc: 401 Interpretive Statements sinus rhythm Nonspecific intraventricular conduction delay Compared to ECG 07/31/2017 13:46:31 Atrial flutter no longer present Inferior Q waves no longer present Electronically Signed On 05-13-2018 10:06:23 COLLECTIONS REPRESENTATIVE by Carolann [place] [email or web address] <ELECTRONICALLY SIGNED> By: Carolann [place] MD, [facility] 05/13/18 1006 1304 1304 Carolann [place] MD, [facility] /EPI
[2018-05-13 16:16] LABS: INFLUENZA A ANTIGEN None Detected (None Detect); INFLUENZA B ANTIGEN None Detected (None Detect)
--- NOTE | 2018-05-13 19:10 | NUR ---
PATIENT RESTING IN BED. PATIENT IS UP AD RASHEED IN ROOM. PATIENT HAS HAD COMPLAINTS OF LEFT RIB PAIN, TREATED ADEQUATELY WITH HYDROCODONE. PATIENT HAS GOOD APPETITE. PATIENT IS ON 2L/NC DENIES ANY TROUBLE BREATHING. PATIENT DENIES ANY NEEDS AT THIS TIME. CALL LIGHT WITHIN REACH. WILL CONTINUE TO MONITOR.
[2018-05-14 03:39] VITALS: BP 130/56
[2018-05-14 05:01] LABS: HEMATOCRIT 23.8 % (42.0-52.0); HEMOGLOBIN 8.2 gm/dL (14.0-18.0); MCH 32.2 pg (26.0-34.0); MCHC 34.4 g/dL (28.0-37.0); MCV 93.4 fL (80.0-100.0); RBC 2.55 mil/uL (4.50-6.00); RDW-CV 18.2 % (10.5-14.5)
[2018-05-14 05:11] LABS: CALCIUM 8.5 mg/dL (8.5-10.1); CREATININE 1.5 mg/dL (0.6-1.3); POTASSIUM 3.8 mmol/L (3.5-5.1)
[2018-05-14 08:10] VITALS: BP 132/51
[2018-05-14 12:00] VITALS: BP 124/59
--- NOTE | 2018-05-14 12:33 | CON ---
[address] [address] CONSULTATION Name: CAROLANN KELLOGG Room: [address] IN .R.#: [id number] Admission: 05/12/18 Attend Phys: Coleen Rose MD Discharge: Date of : 35 Report #: [id number] THIS REPORT FOR: //name// CC: Christina Rose DATE OF SERVICE: 05/13/2018 REQUESTING PHYSICIAN: Dr. Coleen Rose. REASON FOR CONSULTATION: Active lung cancer, probable pneumonia. DISCUSSION: The patient is a very pleasant 83-year-old man who presented to the Emergency Department with complaints of significant left-sided chest pain, increased cough and shortness of breath. He has a known history of metastatic urothelial carcinoma. He is status post nephrectomy. A little over a year ago, he was found to have extensive metastatic disease throughout including his ribs and his lungs. He sees Dr. Rivera for that, has been through chemotherapy with the last round back in March. Apparently, however, it has not been helpful. He has had continued disease and progression. He was to follow up with another oncologist through the system to see if he was a candidate for an experimental protocol this week. He notes he had a recent EGD and colonoscopy at the surgical center because of anemia. They are trying to determine if it was related to the chemotherapy or if he had an occult blood loss. After that, he had significant amount of pain over the left lateral chest wall. He does have known metastatic disease there. In fact, the osseous metastases are visible externally. Along with that, he has also developed a cough. He has had trouble lying down flat. Some upper airway congestion as well. He has been unable to sleep flat well at home. He is continuing to have issues, so was seen in the Emergency Department. They noted his O2 saturations did drop when he was lying flat. Chest x-ray suggested he may have some new infiltrate on the left side. He was started on antibiotics and admitted. At the time I saw him this morning, he is feeling better. The cough has improved somewhat. Of course, he did sleep with the head of the bed elevated last night. He is not aware of any definite fevers at home. He has been afebrile since he was admitted. He has had his influenza vaccine for the season though was given to him right before because of the prior chemo that he had been receiving. He has got fairly extensive past medical history. He is hypercoagulable, and is on chronic anticoagulation therapy for that. He underwent a nephrectomy in 2014 with pathology revealing high-grade urothelial carcinoma. Following that diagnosis, he did have bladder cancer. He received BCG treatments for that. He has continued to follow with Urology. [place] [address] CONSULTATION Name: CAROLANN KELLOGG Room: [address] IN ..#: [id number] Admission: 05/12/18 Attend Phys: Coleen Rose MD Discharge: Date of : 35 Report #: [id number] lungs and liver, all consistent with metastatic disease. In 03/2017, he was hospitalized here and did have a biopsy done of his lung masses which confirmed the metastatic disease. It was not thought to be a primary lung cancer. He also has a history of intermittent atrial fibrillation. He required an exploratory laparotomy in the spring when he had a perforated viscus, a perforated diverticulitis. He had a sigmoid colon resection with a colostomy placed at that time, which he has continued to have. He has also had prior urinary tract infections and has a history of asthma. He has been on Symbicort chronically for that. At the time of admission yesterday, his home medications have been Symbicort, which he was doing just once a day, a nebulizer at home which he would do rarely with the albuterol depending on his symptoms. He also has an albuterol inhaler. He is chronically on Eliquis for his hypercoagulable state, Rythmol, Flomax, atorvastatin, diltiazem, p.r.n. hydrocodone, omeprazole and vitamins. SOCIAL HISTORY: He is . He is a remote smoker, quitting back when he was in his 40s. REVIEW OF SYSTEMS: A 12-point ROS was done. Note positives as above. He has had a few episodes of nausea and vomiting. He has had some diarrhea as well with this acute illness, liquid stools fill up his colostomy bags. His has also been somewhat ill as well. She is better at this time. His cough has been productive of whitish yellow secretions, occasionally green. Denies any hemoptysis. He has not noted any blood in any of his stools. He gets burning pain to his chest and down into his abdomen. He does note his rib pain is somewhat better today. However, was quite intense after he had the EGD and colonoscopy. He denies any syncopal episodes. Denies any difficulty swallowing. Energy has been just fair. He does have some fatigue. He has not had any recent falls. FAMILY HISTORY: Positive for lung disease. PHYSICAL EXAMINATION: GENERAL APPEARANCE: He does look somewhat younger than stated age. He is resting in bed with his head up, has O2 running via nasal cannula. He is alert, conversant, able to speak in full sentences. HEENT: Head is normocephalic. Sclerae nonicteric. Mucous membranes do look moist. NECK: Negative for adenopathy. He has no JVD noted. There is no cervical or supraclavicular adenopathy noted. HEART: Regular. He does appear to be in sinus rhythm with occasional extrasystole, but he does have a grade 1-2/6 systolic murmur. On chest wall, he does have obvious bony deformities over one of the lower left ribs laterally. The area is a little tender to palpation. The skin has not opened up. LUNGS: Show breath sounds to be mildly diminished. [place] [address] CONSULTATION Name: KELLOGGCAROLANN Room: [address] IN [facility]#: [id number] Admission: 05/12/18 Attend Phys: Coleen Rose MD Discharge: Date of : 35 Report #: [id number] crackles heard. There is actually few more crackles on the left relative to the right. No dullness to percussion. No E to A changes. No CVA tenderness. ABDOMEN: He does have a colostomy present in his left lower quadrant. Abdomen is otherwise soft and is not tender to palpation. Liver edge is just right below his costal margin. It is nontender. EXTREMITIES: He has no clubbing. Radial pulses are present. Lower extremities, there is no calf tenderness. There is no edema. Homans' is negative. SKIN: Warm and dry. NEUROLOGIC: He is alert and oriented x 3. Moving all extremities. LABORATORY AND X-RAY FINDINGS: A portable chest film does show heart size to be normal to upper limits of normal. Some obvious bony deformities left ribs. Compared to earlier studies, it does appear that there might be a bit more patchy infiltrates seen on the left side. However, I am not able to do a side by side comparison on PACS. His chem profile reveals a BUN of 19, creatinine of 1.3, potassium is 4.1, bilirubin and transaminases are normal. Albumin 2.8. ProBNP 603. Troponins unremarkable. Calcium 8.7. White blood cell count 4400, hemoglobin 8.3, hematocrit 24.4, platelets 150,000. Blood cultures have been sent. Urine culture is pending. Had an echocardiogram done in July of this year. At that time, he had some mild concentric LVH. Appeared to be hyperdynamic. RV was normal. Does not appear to have any significant valvular heart disease. IMPRESSION: 1. Probable lower respiratory tract infection. May have started as a viral upper respiratory infection. Has had some cough, increased shortness of breath. No dense consolidative areas are noted on the portable chest film. 2. History of urothelial carcinoma. He is status post right nephrectomy in 2015. Known metastatic disease to liver, lungs and bone. Per history has failed chemotherapy. Was to have been considered for study through . 3. History of bladder carcinoma. 4. Known hypercoagulable state. He is chronically anticoagulated. 5. History of bladder cancer. Reportedly, no evidence of recurrence. He is status post BCG treatments. 6. History of asthma. Has been well controlled with daily Symbicort and p.r.n. albuterol. 7. Overall long-term prognosis appears guarded. By history, has had progression of his underlying malignancy. 8. Anemia. Presumably, this is related to his chemotherapy. Per patient, no evidence of gastrointestinal bleeding was found at the time of his recent GI procedures. RECOMMENDATIONS: 1. Agree with covering with antibiotics. 2. Schedule bronchodilator therapy while he is here in the hospital. We will [address] [place] [address] CONSULTATION Name: CAROLANN KELLOGG Room: [address] IN [facility]#: [id number] Admission: 05/12/18 Attend Phys: Coleen Rose MD Discharge: Date of : 35 Report #: [id number] do the DuoNeb q.i.d. and p.r.n. 3. Since we do not carry Symbicort at [facility], we will use Brovana and budesonide. 4. Check influenza and viral panel. 5. Hopefully can be discharged soon. If there is any other concerns, may need to have input from his oncologist. <ELECTRONICALLY SIGNED> By: Sea Haque MD 05/14/18 1233 1103 [id number] Yuen MD /nt
[2018-05-14 14:51] LABS: % SATURATION 26 % (20-39); IRON 36 ug/dL (50-175)
--- NOTE | 2018-05-14 15:38 | NUR ---
SW met with pt to complete initial assessment, introduce self, and SW role. Pt and pt son in law present. Pt lives at home with his . Pt has hx of [facility] SNF and HH. Pt alert, oriented, pleasant. Pt does not anticipate any dc needs and is independent with mobility and ADLs. SW to continue to assist with safe dc planning if needs arise.
[2018-05-14 16:00] VITALS: BP 123/51
--- NOTE | 2018-05-14 18:40 | NUR ---
PATIENT HAS BEEN A/O X 4 THIS SHIFT. 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 PATIENT ON O2 AT 2L/NC. MEDICATED FOR LEFT RIB PAIN WITH GOOD RELIEF. UP AD RASHEED IN ROOM. PATIENT AMBULATING IN HALLS THIS SHIFT. APPETITE GOOD. HOPEFUL TO BE DISCHARGED SOON. HOURLY ROUNDING COMPLETED. CALL LIGHT WITHIN REACH. WILL CONTINUE WITH PLAN OF CARE.
[2018-05-14 20:00] VITALS: BP 142/55
[2018-05-15] VITALS: BP 125/56
[2018-05-15 03:56] VITALS: BP 139/64
[2018-05-15 04:16] LABS: HEMATOCRIT 26.9 % (42.0-52.0); HEMOGLOBIN 9.1 gm/dL (14.0-18.0); MCH 31.7 pg (26.0-34.0); MCHC 33.7 g/dL (28.0-37.0); MCV 94.1 fL (80.0-100.0); RBC 2.85 mil/uL (4.50-6.00); RDW-CV 18.6 % (10.5-14.5); WBC 5.6 thou/uL (4.0-11.0)
[2018-05-15 04:39] LABS: ALBUMIN 2.6 g/dL (3.4-5.0); CALCIUM 8.5 mg/dL (8.5-10.1); CREATININE 1.6 mg/dL (0.6-1.3); POTASSIUM 4.2 mmol/L (3.5-5.1); TOTAL BILIRUBIN 0.4 mg/dL (<0.1-1.0); TOTAL PROTEIN 6.5 g/dL (6.4-8.2)
--- NOTE | 2018-05-15 05:54 | NUR ---
PT SLEPT MOST OF SHIFT. ASSESSMENT DOCUMENTED. MEDS GIVEN PER E-MAR. PORT PATENT. RT PLACED PT ON 2L NC THIS SHIFT O2 SAT WAS IN 80'S% WHILE SLEEPING. WILL CONTINUE WITH PLAN OF CARE.
[2018-05-15 07:50] VITALS: BP 136/64
[2018-05-15 12:00] VITALS: BP 137/55
[2018-05-15] MEDS ORDERED: PREDNISONE 20 M20 MG PO (12:39)
[2018-05-15] MEDS ORDERED: CEFDINIR300 MG PO (12:40)
[2018-05-15 14:07] VITALS: BP 137/55
--- NOTE | 2018-05-15 15:20 | NUR ---
PATIENT A&OX4, ROOM AIR, 2L O2 DURRING NOC. RIGHT CHEST PORTICATH, IV ABX. IV DEACCESSED PER HEPARIN PROTOCOL. UP AD RASHEED, STEADY GIAT. NO C/O PAIN/N/V. NO STOOL PRODUCTION IN COLOSTOMY, PRODUCING GAS. DISCHARGED TODAY. REVIEWED PAPERWORK WITH PATIENT, WHILE AT BEDSIDE. ALL QUESTIONS AND CONCERNS ANSWERED. NO OTHER CONCERNS AT THIS TIME. PATIENT LEFT UNIT AT 1505 VIA W/C WITH ALL BELONGINGS, NOTHING LEFT BEHIND. APPROPRIATE AND COOPORATIVE WITH CARE.
[2018-05-17 04:06] LABS: ADENOVIRUS Negative (Negative); INFLUENZA A Negative (Negative); INFLUENZA B Negative (Negative); METAPNEUMOVIRUS Negative (Negative); PARAINFLUENZA 1 Negative (Negative); PARAINFLUENZA 2 Negative (Negative); PARAINFLUENZA 3 Negative (Negative); RHINOVIRUS Negative (Negative); RSV A Negative (Negative); RSV B Negative (Negative)
== END 2018-05-15 15:05 | disposition home or self-care (01) | DRG 871 ==
LOC: M.ERS 12:31 → M.3W 15:01 → M.TBA-ER 15:01 → M.3W 16:41
PROVIDERS: Emergency Medicine Emergency Medical Services; Internal Medicine; Internal Medicine Pulmonary Disease; ADMIT Family Medicine
DX: A41.9 Sepsis, unspecified organism (principal); J96.01 Acute respiratory failure with hypoxia; N17.0 Acute kidney failure with tubular necrosis; J15.9 Unspecified bacterial pneumonia; D68.59 Other primary thrombophilia; C79.51 Secondary malignant neoplasm of bone; C78.00 Secondary malignant neoplasm of unspecified lung; C78.7 Secondary malignant neoplasm of liver and intrahepatic bile duct; E44.1 Mild protein-calorie malnutrition; D64.81 Anemia due to antineoplastic chemotherapy; I48.2 Chronic atrial fibrillation; K59.03 Drug induced constipation; N18.3 Chronic kidney disease, stage 3 (moderate); J45.909 Unspecified asthma, uncomplicated; E78.5 Hyperlipidemia, unspecified; Z85.54 Personal history of malignant neoplasm of ureter; Z88.8 Allergy status to other drugs, medicaments and biological substances; Z79.899 Other long term (current) drug therapy; Z85.51 Personal history of malignant neoplasm of bladder; Z90.5 Acquired absence of kidney; Z92.21 Personal history of antineoplastic chemotherapy; Z87.891 Personal history of nicotine dependence; Z79.51 Long term (current) use of inhaled steroids; Z79.01 Long term (current) use of anticoagulants; Z68.27 Body mass index [BMI] 27.0-27.9, adult

== ENCOUNTER 2018-06-27 15:07 | Inpatient (IN) | payer MEDICARE ==
[~2018-06-27] VITALS: Ht 177.8 cm; Wt 94.3 kg
[~2018-06-27 15:07] MED LIST changes: +CEFDINIR300 MG PO; +LIPITOR40 MG PO; +OMEPRAZOLE 20 M20 M1 PO; +PREDNISONE 20 M20 MG PO
[2018-06-27 15:15] VITALS: BP 136/57
[2018-06-27] MEDS ORDERED: OXYCODONE HCL 55 MG PO (15:21)
[2018-06-27] MEDS ORDERED: NEURONTIN 300300 M1 PO (15:21)
[2018-06-27 15:58] LABS: BE 4.2 mmol/L (-2 to +3); PCO2 VENOUS 60.3 mmHg (41.0-51.0)
[2018-06-27 15:59] LABS: ABSOLUTE LYMPHOCYTES 0.6 thou/uL (0.8-5.3); ABSOLUTE MONOCYTES 0.7 thou/uL (0.0-1.2); ABSOLUTE NEUTROPHILS 4.3 thou/uL (1.6-8.1); BASOPHILS 0.1 %; EOSINOPHILS 0.2 %; HEMATOCRIT 30.6 % (42.0-52.0); HEMOGLOBIN 10.2 gm/dL (14.0-18.0); LYMPHOCYTES 11.3 %; MCH 31.3 pg (26.0-34.0); MCHC 33.2 g/dL (28.0-37.0); MCV 94.2 fL (80.0-100.0); MONOCYTES 12.3 %; MPV 7.5 fl. (7.2-11.1); NUCLEATED RBCS 0 /100WBC; PLATELET COUNT* 234 thou/uL (150-400); POLYS 76.1 %; RBC 3.25 mil/uL (4.50-6.00); RDW-CV 18.8 % (10.5-14.5); WBC 5.6 thou/uL (4.0-11.0)
[2018-06-27 16:00] LABS: PO2 VENOUS 36.9 mmHg (35.0-45.0)
[2018-06-27 16:05] LABS: ANION GAP 4 mmol/L (7-16); BUN 31 mg/dL (7-18); CALCIUM 7.5 mg/dL (8.5-10.1); CHLORIDE 108 mmol/L (98-107); CO2 28 mmol/L (21-32); CREATININE 1.1 mg/dL (0.6-1.3); GLUCOSE 89 mg/dL (70-99); POTASSIUM 3.3 mmol/L (3.5-5.1); SODIUM 140 mmol/L (136-145)
[2018-06-27 16:07] LABS: INR 1.4; PROTIME 14.3 Seconds (9.20-11.50)
[2018-06-27 16:17] LABS: ALKALINE PHOSPHATASE 76 U/L (46-116); NT-PRO BRAIN NAT PEPTIDE 522 pg/mL (<300); SGOT 12 U/L (15-37); SGPT 10 U/L (30-65); TOTAL BILIRUBIN 0.4 mg/dL (<0.1-1.0); TOTAL PROTEIN 5.1 g/dL (6.4-8.2); TROPONIN-I LEVEL <0.06 ng/mL (<0.06)
[2018-06-27 18:20] LABS: INFLUENZA A ANTIGEN None Detected (None Detect); INFLUENZA B ANTIGEN None Detected (None Detect)
[2018-06-27 20:40] VITALS: BP 117/50
[2018-06-27 21:10] VITALS: BP 115/53
[2018-06-28 04:00] VITALS: BP 126/65
[2018-06-28 11:58] VITALS: BP 131/60
[2018-06-28 15:26] VITALS: BP 127/63
--- NOTE | 2018-06-28 18:20 | EKG ---
[place] [address] ELECTROCARDIOGRAM REPORT Name: CAROLANN KELLOGG Room: [address] ADM IN .R.#: [id number] Admission: 06/27/18 Attend Phys: Josephine Mcfarlane Discharge: Date of : 35 Report #: [id number] THIS REPORT FOR: //name// [facility] Test Date: 2018-06-27 Test Time: 16:15:45 Pat Name: CAROLANN KELLOGG Department: Room: [facility] Gender: M Slope Hoist Operator: : 1935 Requested By: Navi Iglesias Order Number: [id number] MD: Ever Staruss Measurements Intervals [place] Rate: 70 P: 30 [place]: 215 QRS: 0 QRSD: 108 T: 78 QT: 375 QTc: 405 Interpretive Statements Sinus rhythm Borderline prolonged [place] interval Incomplete left bundle branch block Compared to ECG 05/12/2018 13:04:20 INTRAVENTRICULAR CONDUCTION DELAY persists Electronically Signed On 06-28-2018 18:19:53 HEAD OF MOBILE by Ever Strauss [email or web address] <ELECTRONICALLY SIGNED> By: Ever Strauss MD, [facility] 06/28/18 1819 1615 161 Ever Strauss MD, FACC /EPI
[2018-06-28 20:00] VITALS: BP 137/59
[2018-06-29] VITALS: BP 125/59
[2018-06-29 04:00] VITALS: BP 116/80; BP 132/64
[2018-06-29 06:18] LABS: HEMATOCRIT 27.1 % (42.0-52.0); HEMOGLOBIN 9.1 gm/dL (14.0-18.0); MCH 31.6 pg (26.0-34.0); MCHC 33.4 g/dL (28.0-37.0); MCV 94.6 fL (80.0-100.0); RBC 2.87 mil/uL (4.50-6.00); RDW-CV 19.2 % (10.5-14.5); WBC 7.7 thou/uL (4.0-11.0)
[2018-06-29 06:30] LABS: CALCIUM 9.1 mg/dL (8.5-10.1); CREATININE 1.4 mg/dL (0.6-1.3); MAGNESIUM 1.9 mg/dL (1.8-2.4); POTASSIUM 4.2 mmol/L (3.5-5.1)
[2018-06-29 08:00] VITALS: BP 130/63
[2018-06-29 12:00] VITALS: BP 134/58
--- NOTE | 2018-06-29 15:35 | EKG ---
[place] [address] ELECTROCARDIOGRAM REPORT Name: CAROLANN KELLOGG Room: [address] ADM IN M.R.#: [id number] Admission: 06/27/18 Attend Phys: Josephine Mcfarlane Discharge: Date of : 35 Report #: [id number] THIS REPORT FOR: //name// [facility] Test Date: 2018-06-29 Test Time: 08:44:14 Pat Name: CAROLANN KELLOGG Department: Room: [address] Gender: M Transportation Modeler: : 1935 Requested By: Zenon Garza Order Number: [id number] Christi MD: Ever Strauss Measurements Intervals [place] Rate: 60 P: 32 PA: 211 QRS: 15 QRSD: 113 T: 56 QT: 401 QTc: 401 Interpretive Statements Sinus rhythm Incomplete left bundle branch block Electronically Signed On 06-29-2018 15:35:13 AUTOMOTIVE WHOLESALE PARTS ADVISOR by Ever Strauss [email or web address] <ELECTRONICALLY SIGNED> By: Ever Strauss MD, [facility] 06/29/18 1535 0844 0844 Ever Strauss MD, FACC /EPI
[2018-06-29 16:34] VITALS: BP 116/56
[2018-06-29 20:00] VITALS: BP 144/56
[2018-06-30 00:48] VITALS: BP 147/64
[2018-06-30 04:00] VITALS: BP 130/88
[2018-06-30 05:54] LABS: CREATININE 1.2 mg/dL (0.6-1.3); POTASSIUM 4.9 mmol/L (3.5-5.1)
[2018-06-30 12:00] VITALS: BP 141/56
[2018-06-30 16:00] VITALS: BP 131/62
[2018-06-30 20:00] VITALS: BP 134/52
[2018-07-01] VITALS: BP 150/71
[2018-07-01 04:00] VITALS: BP 140/72
[2018-07-01 12:00] VITALS: BP 132/60
[2018-07-01 16:00] VITALS: BP 137/78
[2018-07-01 20:00] VITALS: BP 141/70
[2018-07-02] VITALS: BP 165/65
[2018-07-02 04:00] VITALS: BP 155/67
[2018-07-02 08:00] VITALS: BP 152/67
[2018-07-02] MEDS ORDERED: CEFDINIR300 MG PO (11:55)
[2018-07-02] MEDS ORDERED: DURAGESIC1 EAC4 TRANSDERM (11:56)
[2018-07-02] MEDS ORDERED: GAVILAX17 GM PO (11:58)
[2018-07-02] MEDS ORDERED: SENNA PLUS TAB1 EACH PO (11:58)
[2018-07-02 12:00] VITALS: BP 162/63
[2018-07-02] MEDS ORDERED: PREDNISONE 10 M10 MG PO (12:14)
[2018-07-02 13:52] VITALS: BP 162/63
[2018-07-02 13:57] VITALS: BP 162/63
--- NOTE | 2018-07-18 09:45 | EKG ---
[place] [address] ELECTROCARDIOGRAM REPORT Name: CAROLANN KELLGOG Room: [address] IN [facility]#: [id number] Admission: 06/27/18 Attend Phys: Josephine Mcfarlane Discharge: 07/02/18 Date of : 35 Report #: [id number] THIS REPORT FOR: //name// [facility] Test Date: 2018-07-18 Test Time: 09:00:46 Pat Name: CAROLANN KELLOGG Department: Room: [address] Gender: Rink Rat: : 1935 Requested By: Carolann Fowler Order Number: [id number] Christi MD: Carolann Fowler Measurements Intervals [place] Rate: 76 P: 55 SC: 182 QRS: 1 QRSD: 104 T: 70 QT: 390 QTc: 439 Interpretive Statements Sinus rhythm Compared to ECG 07/17/2018 07:17:38 Atrial fibrillation no longer present Electronically Signed On 07-18-2018 9:45:07 CDT by Carolann Fowler [email or web address] <ELECTRONICALLY SIGNED> By: Carolann Fowler MD, [facility] 07/18/1845 9 9 Carolann Fowler MD, FAC /EPI
== END 2018-07-02 15:39 | disposition home health service (06) | DRG 177 ==
LOC: M.ERS 15:07 → M.2W 16:52 → M.TBA-ER 16:52 → M.2W 20:40
PROVIDERS: Family Medicine; Internal Medicine; ADMIT Internal Medicine
DX: J69.0 Pneumonitis due to inhalation of food and vomit (principal); E43 Unspecified severe protein-calorie malnutrition; J96.01 Acute respiratory failure with hypoxia; J96.02 Acute respiratory failure with hypercapnia; J44.1 Chronic obstructive pulmonary disease with (acute) exacerbation; R04.2 Hemoptysis; C34.90 Malignant neoplasm of unspecified part of unspecified bronchus or lung; D68.69 Other thrombophilia; J44.0 Chronic obstructive pulmonary disease with (acute) lower respiratory infection; C41.9 Malignant neoplasm of bone and articular cartilage, unspecified; I48.91 Unspecified atrial fibrillation; I12.9 Hypertensive chronic kidney disease with stage 1 through stage 4 chronic kidney disease, or unspecified chronic kidney disease; J45.909 Unspecified asthma, uncomplicated; Z66 Do not resuscitate; E78.5 Hyperlipidemia, unspecified; N18.3 Chronic kidney disease, stage 3 (moderate); Z51.5 Encounter for palliative care; Z88.1 Allergy status to other antibiotic agents; Z98.49 Cataract extraction status, unspecified eye; Z87.891 Personal history of nicotine dependence; Z68.29 Body mass index [BMI] 29.0-29.9, adult; Z90.5 Acquired absence of kidney; Z86.711 Personal history of pulmonary embolism; Z86.718 Personal history of other venous thrombosis and embolism; Z79.899 Other long term (current) drug therapy

== ENCOUNTER 2018-07-07 08:52 | Emergency (ER) | payer MEDICARE ==
[~2018-07-07] VITALS: Ht 177.8 cm; Wt 96.2 kg
[~2018-07-07 08:52] MED LIST changes: +DURAGESIC1 EAC4 TRANSDERM; +GAVILAX17 GM PO; +NEURONTIN 300300 M1 PO; +OXYCODONE HCL 55 MG PO; +PREDNISONE 10 M10 MG PO; +SENNA PLUS TAB1 EACH PO
[2018-07-07 09:46] LABS: HEMATOCRIT 28.7 % (42.0-52.0); HEMOGLOBIN 9.6 gm/dL (14.0-18.0); MCH 31.3 pg (26.0-34.0); MCHC 33.6 g/dL (28.0-37.0); MCV 93.2 fL (80.0-100.0); NUCLEATED RBCS 0 /100WBC; PLATELET COUNT* 160 thou/uL (150-400); RBC 3.07 mil/uL (4.50-6.00); RDW-CV 18.5 % (10.5-14.5); WBC 9.4 thou/uL (4.0-11.0)
[2018-07-07 10:03] LABS: ANION GAP 2 mmol/L (7-16); BUN 28 mg/dL (7-18); CALCIUM 8.7 mg/dL (8.5-10.1); CHLORIDE 100 mmol/L (98-107); CO2 34 mmol/L (21-32); CREATININE 1.2 mg/dL (0.6-1.3); GLUCOSE 88 mg/dL (70-99); POTASSIUM 4.1 mmol/L (3.5-5.1); SODIUM 136 mmol/L (136-145); TROPONIN-I LEVEL <0.06 ng/mL (<0.06)
[2018-07-07 10:04] LABS: ALBUMIN 2.2 g/dL (3.4-5.0); ALKALINE PHOSPHATASE 91 U/L (46-116); NT-PRO BRAIN NAT PEPTIDE 745 pg/mL (<300); SGOT 19 U/L (15-37); SGPT 15 U/L (30-65); TOTAL BILIRUBIN 0.7 mg/dL (<0.1-1.0); TOTAL PROTEIN 5.4 g/dL (6.4-8.2)
[2018-07-07 10:24] LABS: ABSOLUTE EOSINOPHILS 0.2 thou/uL (0.0-0.7); ABSOLUTE LYMPHOCYTES 0.4 thou/uL (0.8-5.3); ABSOLUTE MONOCYTES 0.8 thou/uL (0.0-1.2); METAMYELOCYTES 1 %
[2018-07-07 10:25] LABS: APTT 39.8 Seconds (25.0-31.3); INR 1.2; MICROCYTES 2+; PLATELET ESTIMATE ADEQUATE; PROTIME 12.5 Seconds (9.20-11.50)
[2018-07-07 10:26] LABS: HYPOCHROMASIA 1+; OVALOCYTES 1+; SCHISTOCYTES Occasional
[2018-07-07] MEDS ORDERED: MUCINEX600 MG PO (14:50)
[2018-07-07 15:11] VITALS: BP 128/60
--- NOTE | 2018-07-08 14:08 | EKG ---
[place] [address] ELECTROCARDIOGRAM REPORT Name: CAROLANN KELLOGG Room: [facility]#: [id number] Admission: 07/07/18 Attend Phys: Discharge: 07/07/18 Date of : 35 Report #: [id number] THIS REPORT FOR: //name// [facility] ED Test Date: 2018-07-07 Test Time: 08:59:28 Pat Name: CAROLANN STALLWORTHE Department: Room: Gender: M Ultimate Hoops Referee: ETHAN : 1935 Requested By: Luís Hernandez Order Number: [id number] MD: Kel Grimes Measurements Intervals [place] Rate: 79 P: 39 RI: 180 QRS: 4 QRSD: 98 T: 68 QT: 340 QTc: 390 Interpretive Statements Sinus rhythm Minimal ST depression, lateral leads Compared to ECG 06/29/2018 08:44:14 ST (T wave) deviation now present Left bundle-branch block no longer present Electronically Signed On 07-08-2018 14:08:16 PILATES COORDINATOR by Kel Grimes [email or web address] <ELECTRONICALLY SIGNED> By: Kel Grimes MD, [facility] 07/08/18 1408 0859 0859 Kel Grimes MD, [facility] /EPI
== END 2018-07-07 15:12 | disposition home or self-care (01) ==
LOC: M.ERS 08:52
PROVIDERS: Emergency Medicine Emergency Medical Services
DX: R09.89 Other specified symptoms and signs involving the circulatory and respiratory systems (principal); R06.02 Shortness of breath; E78.5 Hyperlipidemia, unspecified; I48.91 Unspecified atrial fibrillation; J45.909 Unspecified asthma, uncomplicated; Z87.891 Personal history of nicotine dependence; Z88.8 Allergy status to other drugs, medicaments and biological substances; Z85.118 Personal history of other malignant neoplasm of bronchus and lung

== ENCOUNTER 2018-07-15 13:43 | Inpatient (IN) | payer MEDICARE ==
[~2018-07-15] VITALS: Ht 177.8 cm; Wt 92.1 kg
[~2018-07-15 13:43] MED LIST changes: +MUCINEX600 MG PO
[2018-07-15 13:49] VITALS: BP 119/67
[2018-07-15] MEDS ORDERED: ATIVAN0.5 MG PO (13:58)
[2018-07-15 14:38] LABS: HEMATOCRIT 29.2 % (42.0-52.0); HEMOGLOBIN 9.8 gm/dL (14.0-18.0); MCH 30.9 pg (26.0-34.0); MCHC 33.5 g/dL (28.0-37.0); MCV 92.3 fL (80.0-100.0); MPV 7.9 fl. (7.2-11.1); NUCLEATED RBCS 0 /100WBC; PLATELET COUNT* 154 thou/uL (150-400); RBC 3.17 mil/uL (4.50-6.00); WBC 10.3 thou/uL (4.0-11.0)
[2018-07-15 14:45] LABS: INR 1.3; PROTIME 13.1 Seconds (9.20-11.50)
[2018-07-15 14:52] LABS: ANION GAP 4 mmol/L (7-16); BUN 22 mg/dL (7-18); CALCIUM 8.9 mg/dL (8.5-10.1); CHLORIDE 99 mmol/L (98-107); CO2 31 mmol/L (21-32); CREATININE 1.2 mg/dL (0.6-1.3); GLUCOSE 116 mg/dL (70-99); POTASSIUM 3.9 mmol/L (3.5-5.1); SODIUM 134 mmol/L (136-145); TROPONIN-I LEVEL <0.06 ng/mL (<0.06)
[2018-07-15 14:53] LABS: ALBUMIN 2.1 g/dL (3.4-5.0); ALKALINE PHOSPHATASE 103 U/L (46-116); NT-PRO BRAIN NAT PEPTIDE 2377 pg/mL (<300); SGOT 13 U/L (15-37); SGPT 12 U/L (30-65); TOTAL BILIRUBIN 0.7 mg/dL (<0.1-1.0); TOTAL PROTEIN 5.7 g/dL (6.4-8.2)
[2018-07-15 15:16] VITALS: BP 115/65
[2018-07-15 15:20] LABS: ABSOLUTE LYMPHOCYTES 0.6 thou/uL (0.8-5.3); ABSOLUTE MONOCYTES 0.5 thou/uL (0.0-1.2); ABSOLUTE NEUTROPHILS 9.2 thou/uL (1.6-8.1)
[2018-07-15 15:21] LABS: ANISOCYTOSIS Occasional; PLATELET ESTIMATE ADEQUATE
[2018-07-15 15:30] VITALS: BP 121/52
[2018-07-15 17:00] VITALS: BP 130/65
[2018-07-15 17:14] VITALS: BP 130/65
[2018-07-15 20:00] VITALS: BP 143/62
[2018-07-16] VITALS: BP 138/52
[2018-07-16 04:00] VITALS: BP 139/57
[2018-07-16 04:34] LABS: HEMATOCRIT 24.7 % (42.0-52.0); HEMOGLOBIN 8.5 gm/dL (14.0-18.0); MCH 31.7 pg (26.0-34.0); MCHC 34.4 g/dL (28.0-37.0); MPV 7.9 fl. (7.2-11.1); RBC 2.69 mil/uL (4.50-6.00); RDW-CV 18.2 % (10.5-14.5); WBC 9.1 thou/uL (4.0-11.0)
[2018-07-16 04:49] LABS: ALBUMIN 1.9 g/dL (3.4-5.0); CALCIUM 8.6 mg/dL (8.5-10.1); CREATININE 1.3 mg/dL (0.6-1.3); MAGNESIUM 1.8 mg/dL (1.8-2.4); POTASSIUM 4.1 mmol/L (3.5-5.1); TOTAL BILIRUBIN 0.7 mg/dL (<0.1-1.0); TOTAL PROTEIN 5.2 g/dL (6.4-8.2)
[2018-07-16 08:00] VITALS: BP 132/52
--- NOTE | 2018-07-16 09:09 | EKG ---
[place] [address] ELECTROCARDIOGRAM REPORT Name: CAROLANN KELLOGG Room: [address] ADM IN .R.#: [id number] Admission: 07/15/18 Attend Phys: Marleni [place] MD Discharge: Date of : 35 Report #: [id number] THIS REPORT FOR: //name// [facility] Test Date: 2018-07-15 Test Time: 16:47:55 Pat Name: CAROLANN KELLOGG Department: Room: [facility] Gender: M Deputy Chief Sheriff: [facility] : 1935 Requested By: Luís Hernandez Order Number: [id number] MD: Carolann Fowler Measurements Intervals [place] Rate: 77 P: 51 DC: 166 QRS: 10 QRSD: 94 T: 53 QT: 347 QTc: 393 Interpretive Statements Sinus rhythm Electronically Signed On 07-16-2018 9:09:14 CDT by Carolann Fowler [email or web address] <ELECTRONICALLY SIGNED> By: Carolann Fowler MD, [facility] 07/16/18 0909 1647 1647 Carolann Fowler MD, FACC /EPI
[2018-07-16 11:47] VITALS: BP 123/51
--- NOTE | 2018-07-16 13:54 | EKG ---
[place] [address] ELECTROCARDIOGRAM REPORT Name: CAROLANN KELLOGG Room: [address] ADM IN .R.#: [id number] Admission: 07/15/18 Attend Phys: Marleni Colorado MD Discharge: Date of : 35 Report #: [id number] THIS REPORT FOR: //name// [facility] ED Test Date: 2018-07-15 Test Time: 14:05:45 Pat Name: CAROLANN KELLOGG Department: Room: [address] Gender: M Fruit Receiver: : 1935 Requested By: Marleni [place] Order Number: [id number] Christi MD: Carolann Fowler Measurements Intervals [place] Rate: 121 P: TN: QRS: 5 QRSD: 91 T: 131 QT: 279 QTc: 396 Interpretive Statements Atrial fibrillation Abnormal inferior Q waves Nonspecific repol abnormality, lateral leads Compared to ECG 07/07/2018 08:5 Sinus rhythm no longer present Electronically Signed On 07-16-2018 13:53:53 CDT by Carolann Fowler [email or web address] <ELECTRONICALLY SIGNED> By: Carolann Fowler MD, [facility] 07/16/18 1353 1405 1405 Carolann Fowler MD, FAC /EPI
--- NOTE | 2018-07-16 15:13 | EKG ---
[place] [address] ELECTROCARDIOGRAM REPORT Name: CAROLANN KELLOGG Room: [address] ADM IN M.R.#: [id number] Admission: 07/15/18 Attend Phys: Marleni [place] MD Discharge: Date of : 35 Report #: [id number] THIS REPORT FOR: //name// [facility] Test Date: 2018-07-16 Test Time: 10:14:24 Pat Name: CAROLANN KELLOGG Department: Room: [address] Gender: M Web Master: : 1935 Requested By: Carolann Fowler Order Number: [id number] Christi MD: Carolann Fowler Measurements Intervals [place] Rate: 62 P: 22 MI: 230 QRS: -2 QRSD: 115 T: 66 QT: 401 QTc: 408 Interpretive Statements Sinus rhythm Prolonged [place] interval Nonspecific intraventricular conduction delay Compared to ECG 07/15/2018 16:47:55 First degree AV block now present Electronically Signed On 07-16-2018 15:12:55 CDT by Carolann Fowler [email or web address] <ELECTRONICALLY SIGNED> By: Carolann Fowler MD, [facility] 07/16/18 1512 1014 1014 Carolann Fowler MD, FAC /EPI
[2018-07-16 15:50] VITALS: BP 132/57
[2018-07-16 19:45] VITALS: BP 123/57
[2018-07-17] VITALS (10 sets, daily range): BP systolic 85–143; BP diastolic 41–58
--- NOTE | 2018-07-17 11:39 | EKG ---
[place] [address] ELECTROCARDIOGRAM REPORT Name: CAROLANN KELLOGG Room: [address] ADM IN M.R.#: [id number] Admission: 07/15/18 Attend Phys: Marleni [place] MD Discharge: Date of : 35 Report #: [id number] THIS REPORT FOR: //name// [facility] Test Date: 2018-07-17 Test Time: 07:17:38 Pat Name: CAROLANN KELLOGG Department: Room: [address] Gender: M Event Executive: : 1935 Requested By: Marleni [place] Order Number: [id number] MD: Justin Carrera Measurements Intervals [place] Rate: 94 P: NE: QRS: -9 QRSD: 115 T: 85 QT: 356 QTc: 446 Interpretive Statements Atrial fibrillation Nonspecific intraventricular conduction delay Compared to ECG 07/16/2018 10:14:24 atrial fibrillation now present Electronically Signed On 07-17-2018 11:39:25 CDT by Justin Carrera [email or web address] <ELECTRONICALLY SIGNED> By: Justin Carrera MD, [facility] 07/17/18 1139 6 6 Justin Carrera MD, FACC /EPI
--- NOTE | 2018-07-17 18:04 | CON ---
[address] [address] CONSULTATION Name: WILIAN KELLOGG Room: [address] IN .R.#: [id number] Admission: 07/15/18 Attend Phys: Marleni Colorado MD Discharge: Date of : 35 Report #: [id number] THIS REPORT FOR: //name// CC: Wilian Colorado [facility] [place] DATE OF SERVICE: 07/16/2018 HISTORY OF PRESENT ILLNESS: The patient is an 83-year-old white male who I was asked to see in the hospital today after he was noted to be in atrial fibrillation. The patient has an extensive and complicated past medical history. Unfortunately, not a lot of his old records are available. However, he states that years ago he was having arm pain and was found to have coronary artery disease. He had a stent placed in his right coronary artery 8 years ago. He has been followed by Dr. Wing at [place]. He also has a history of atrial fibrillation for years. He has never required cardioversion. He chronically has been on Rythmol and anticoagulated with Eliquis for at least 3 years. About 3 years ago, he was diagnosed with cancer. He presented with hematuria. He was found to have bladder cancer and apparently had spread to the ureter and kidney. He apparently underwent resection. However, the cancer subsequently was found to have spread to a rib and his lung. He was tried with immunotherapy that was unsuccessful. He currently is scheduled to be seen in [facility] for additional treatment and possible study medication. He is not very active because of his COPD. He also has chronic pain, is on a fentanyl patch. He was doing well until the past few days; he had increasing shortness of breath or cough. Denied any fever, edema or leg pain. Denied any chest or arm pain. Denied any palpitations, syncope or bleeding. He finally came to the Emergency Room here at [place] yesterday. He was found to be in atrial fibrillation. He was placed on IV Cardizem and converted to sinus rhythm. I was asked to see him for further evaluation and treatment. PAST MEDICAL HISTORY: Otherwise, he has a history of hyperlipidemia. MEDICATIONS: Consists of Rythmol, Eliquis, Lipitor, and inhaler. He is on chronic oxygen. ALLERGIES: HE HAS INTOLERANCE TO NIASPAN. FAMILY HISTORY: Negative for heart disease. SOCIAL HISTORY: He is . He and his live in [place]. Quit smoking years ago, rarely drinks alcohol. REVIEW OF SYSTEMS: He has had no history of stroke, peptic ulcer disease, [place] [address] CONSULTATION Name: WILIAN KELLOGG Room: [address] IN ..#: [id number] Admission: 07/15/18 Attend Phys: Marleni Colorado MD Discharge: Date of : 35 Report #: [id number] disease, skin problems, psychiatric illness. PHYSICAL EXAMINATION: GENERAL: Revealed an elderly male, lying in bed, he appeared in no acute distress. VITAL SIGNS: He had a blood pressure of 140/60, pulse 70, he is afebrile. HEENT: He was anicteric. Conjunctivae pink. Mucous members moist. NECK: Neck veins do not appear distended. No carotid bruits. Neck is supple. CHEST: Clear to auscultation. CARDIOVASCULAR: Regular rate without murmur. ABDOMEN: Soft, nontender. EXTREMITIES: Had no edema, no Homans' sign. Posterior tibial pulse 2+ bilaterally. SKIN: Warm, dry. NEUROLOGIC: Nonfocal. LYMPH: No adenopathy. MUSCULOSKELETAL: No joint effusion. ECG on admission yesterday showed atrial fibrillation with an increased ventricular response rate. Subsequent ECG 2 hours later showed a sinus rhythm and the patient has remained in sinus rhythm since that time. His workup, he had an echocardiogram done here a year ago in 07/2017 that showed left ventricular hypertrophy, ejection fraction 65%. He had a chest x-ray yesterday that showed cardiomegaly, nodular masses consistent with pulmonary metastatic disease without change from previous chest x-ray. He actually had a CT scan of the chest using the PE protocol on 07/07/2018 that showed no pulmonary embolus, multiple masses, metastatic rib lesions, adenopathy, small effusions likely atelectasis. LABORATORY DATA: His lab work, sodium 135, creatinine 1.3, albumin 1.9, troponin 0.06. BNP 2377. TSH on 07/15/2018 was 3.5. His white blood cell count was 9.1, hemoglobin 8.5. It was actually 7.2 last October. IMPRESSION AND RECOMMENDATIONS: 1. Paroxysmal atrial fibrillation. Currently on high dose Rythmol. If recurrent to have episodes, I would consider switching to amiodarone. The patient has been anticoagulated with Eliquis. 2. Metastatic bladder cancer. The patient is being considered for investigated therapy. 3. 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 4. Hyperlipidemia. The patient is on a statin drug. 5. Anemia. No history of bleeding. <ELECTRONICALLY SIGNED> By: Wilian Fowler MD, [facility] 07/17/18 1804 0816 2317David Katie Fowler MD, FACC /nt
[2018-07-18] VITALS: BP 149/65
[2018-07-18 04:00] VITALS: BP 140/66
[2018-07-18 08:00] VITALS: BP 123/66
[2018-07-18 12:21] VITALS: BP 146/63
[2018-07-18 15:54] VITALS: BP 138/57
[2018-07-18 20:00] VITALS: BP 139/67
[2018-07-19] VITALS (7 sets, daily range): BP systolic 143–158; BP diastolic 55–67
--- NOTE | 2018-07-19 07:14 | CON ---
[address] [address] CONSULTATION Name: CAROLANN KELLOGG Room: [address] IN M.R.#: [id number] Admission: 07/15/18 Attend Phys: Marleni Colorado MD Discharge: Date of : 35 Report #: [id number] THIS REPORT FOR: //name// CC: Carolann Ravi MD [facility] Nicole DATE OF SERVICE: 07/17/2018 PULMONARY CONSULTATION LOCATION: Room 215. ATTENDING PHYSICIAN: Marleni Ravi MD. INDICATION FOR CONSULTATION: Hypoxemia, metastatic lung cancer. CLINICAL SUMMARY: The patient is an 83-year-old male, very remote smoker, who presented to the [facility] for dyspnea. The patient had been short of breath for 3-5 days. 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 He was on carboplatin and Gemzar, but his last chemotherapy was 3 months ago. He has been on palliative therapy at this time. He was on 4-5 liters of oxygen at home. Now, he is on 15 liters and much short of breath. Chest x-ray looks like he has lymphangitic spread of tumor and multiple lower lobe pulmonary nodules. He does have a history of bladder cancer. I am not sure whether this is metastatic disease from the bladder or a new secondary primary with a lung primary with metastatic disease. He has not had radiation therapy. He has some cough with some yellow sputum. No fever, chills or sweats. He is up-to-date on his flu and pneumonia vaccines. PAST MEDICAL HISTORY: Has a history of atrial fibrillation, has a history of coagulopathy. He has had intermittent colitis and again, he has had bladder cancer with several bladder surgeries. He has had either open lung biopsies or percutaneous needle biopsies in the left lower lobe mass with rib resection and appears to be a non-small cell carcinoma. Questionable whether he has either COPD and/or just hypoxemia related to his lymphangitic spread and multiple pulmonary metastases. ALLERGIES: HE HAS ALLERGIES OR INTOLERANCE FROM NIACIN OR NIASPAN CAPSULES. OUTPATIENT MEDICATIONS: Include oxycodone IR 5 mg q. 4 hours, (albuterol) RespiClick ProAir 90 mcg 2 puffs 2-3 times a day, propafenone 300 mg every 8 hours for atrial fibrillation, Apixaban 5 mg p.o. b.i.d. for atrial fibrillation, diltiazem 180 mg daily, tamsulosin or Flomax 0.4 mg daily, [place] [address] CONSULTATION Name: CAROLANN KELLOGG Room: [address] IN M.R.#: [id number] Admission: 07/15/18 Attend Phys: Marleni Colorado MD Discharge: Date of : 35 Report #: [id number] omeprazole 20 mg b.i.d., lorazepam 0.5 mg every 6 hours, Lipitor 40 mg daily and Symbicort 160/4.5 two puffs b.i.d. Oxygen was at 4 liters at home, 15 liters now. Other past history includes asthma, atrial fibrillation, hyperlipidemia. PAST SURGICAL HISTORY: Include right kidney removed secondary to renal cell cancer, bladder surgery x 2 to remove malignant tumors, lung cancer involving both lungs and 2 ribs on the left side with previous biopsy, bowel resection with colostomy and cataract surgery. FAMILY HISTORY: Negative for premature cardiopulmonary disease. No history of lung cancer in his family. SOCIAL HISTORY: About 10-15 pack year history of smoking. He quit 40 years ago, though. He worked at [employer]. He did not have any occupational or asbestos exposure. REVIEW OF SYSTEMS: A 14-point review of systems reviewed and negative except for pertinent positives noted in HPI. PHYSICAL EXAMINATION: GENERAL: A pleasant, 83-year-old male, who is sleeping quietly, in no acute distress at the time of consultation. VITAL SIGNS: Blood pressure is 123/66, heart rate 72, respirations were 20, temperature is 36.6 degrees on 15 liters high flow cannula, saturations 96%. He is 5 feet 10 inches tall, weight is 92 kilograms or 208 pounds, BMI is 29. HEENT: Unremarkable. Mucous membranes are moist. NECK: Supple, without nodes. No increase in jugular venous pressure. CHEST: Reveals bibasilar crackles and rhonchi, left greater than right. Minimal dullness in the left base. Mildly prolonged expiratory phase. CARDIOVASCULAR: Irregular rate and rhythm with ventricular response in the 70s. No S3 is noted. ABDOMEN: Soft, without masses or megaly. EXTREMITIES: No calf tenderness. No cyanosis, clubbing or edema. LABORATORY DATA: From 07/16/2018, hemoglobin was 8.5, white count was 9100, MCV was 92, and platelets 145,000. Sodium is 135, potassium is 4.1, bicarbonate is elevated at 31, BUN is 24, creatinine is 1.3. AST and ALT were low normal, within normal limits. BUN was 24 and albumin was 1.9, prealbumin is low at 11.8. TSH is normal at 3.52. No ABGs were drawn and chest x-ray from 07/17/2018 shows bilateral lower lobe masses with a large mass in the left lower lobe and lingular that appears to be about 5-6 cm with some rib involvement and there is blunting of the left costophrenic angle, could have a small pleural effusion there. I do not have his old films nor his CAT scans or path reports. [address] [place] [address] CONSULTATION Name: CAROLANN KELLOGG Room: [address] IN M.R.#: [id number] Admission: 07/15/18 Attend Phys: Marleni [place] MD Discharge: Date of : 35 Report #: [id number] IMPRESSION: 1. Hypoxemia, multifactorial. 2. Multiple pulmonary masses, most likely non-small cell carcinoma of the lung with metastatic disease and lymphangitic spread with subsequent hypoxemia. 3. Bladder cancer. 4. Previous renal cell carcinoma with right nephrectomy. 5. Atrial fibrillation. PLAN: We will see what we can do about improving his oxygenation. We will try a short burst of steroids. He is on IV Zosyn. At this time, we will get a sputum culture for Gram stain and C and S, add some oral bronchodilators and make sure he set up for home nebulizer treatments and see if that does not help him out somewhat. The patient is a DNR/DNI. He wants to be coded, but he does not want to be intubated. I think this would be somewhat futile care and after the time comes around and hopefully oxygenation is better, we can talk to him about being a DNR/DNI as prognosis appears quite guarded. I am not sure what he is going to do for repeat chemotherapy at this time. I will defer that to his oncologist. Thanks again for allowing me to participate in this man's care. <ELECTRONICALLY SIGNED> By: Jason Singer MD 07/19/18 0714 1110 0459Amichelle Singer MD /nt
[2018-07-20 04:00] VITALS: BP 151/67
[2018-07-20 08:00] VITALS: BP 174/74
--- NOTE | 2018-07-20 10:35 | EKG ---
[place] [address] ELECTROCARDIOGRAM REPORT Name: CAROLANN KELLOGG Room: [address] ADM IN M.R.#: [id number] Admission: 07/15/18 Attend Phys: Marleni [place] MD Discharge: Date of : 35 Report #: [id number] THIS REPORT FOR: //name// [facility] Test Date: 2018-07-19 Test Time: 14:05:14 Pat Name: CAROLANN STALLWORTHE Department: Room: [address] Gender: M Pinion Polisher: JMAGERS : 1935 Requested By: Marleni [place] Order Number: [id number] Christi MD: Carolann Fowler Measurements Intervals [place] Rate: 77 P: 55 CT: 179 QRS: 8 QRSD: 106 T: 76 QT: 380 QTc: 431 Interpretive Statements Sinus rhythm Abnormal R-wave progression, early transition Minimal ST depression, lateral leads Compared to ECG 07/18/2018 09:00:46 ST (T wave) deviation now present Electronically Signed On 07-20-2018 10:35:41 CDT by Carolann Fowler [email or web address] <ELECTRONICALLY SIGNED> By: Carolann Fowler MD, FAC 07/20/18 1035 1405 1405 Carolann Fowler MD, [facility] /EPI
[2018-07-20 12:33] VITALS: BP 144/51
[2018-07-20 16:00] VITALS: BP 151/61
[2018-07-20 19:45] VITALS: BP 151/65
[2018-07-21] VITALS: BP 158/65
[2018-07-21 04:00] VITALS: BP 146/57
[2018-07-21 08:00] VITALS: BP 102/63
[2018-07-21] MEDS ORDERED: AUGMENTIN 875-1 EACH PO (09:59)
[2018-07-21] MEDS ORDERED: PREDNISONE 10 M10 MG PO (09:59)
[2018-07-21] MEDS ORDERED: ACIDOPHILUS X-1 EACH PO (09:59)
[2018-07-21] MEDS ORDERED: PACERONE 200 M200 M1 PO (09:59)
[2018-07-21 11:45] VITALS: BP 102/63
[2018-07-21 11:49] VITALS: BP 102/63
== END 2018-07-21 13:00 | disposition home health service (06) | DRG 177 ==
LOC: M.ERS 13:43 → M.2W 14:45 → M.TBA-ER 14:45 → M.2W 15:34
PROVIDERS: Emergency Medicine Emergency Medical Services; ADMIT Internal Medicine
DX: J15.6 Pneumonia due to other Gram-negative bacteria (principal); J96.21 Acute and chronic respiratory failure with hypoxia; J44.0 Chronic obstructive pulmonary disease with (acute) lower respiratory infection; C79.19 Secondary malignant neoplasm of other urinary organs; C79.00 Secondary malignant neoplasm of unspecified kidney and renal pelvis; C79.51 Secondary malignant neoplasm of bone; C77.9 Secondary and unspecified malignant neoplasm of lymph node, unspecified; I50.22 Chronic systolic (congestive) heart failure; Z51.5 Encounter for palliative care; I48.0 Paroxysmal atrial fibrillation; C67.9 Malignant neoplasm of bladder, unspecified; D64.9 Anemia, unspecified; I25.10 Atherosclerotic heart disease of native coronary artery without angina pectoris; E78.5 Hyperlipidemia, unspecified; Z98.49 Cataract extraction status, unspecified eye; Z85.118 Personal history of other malignant neoplasm of bronchus and lung; Z79.899 Other long term (current) drug therapy; Z88.6 Allergy status to analgesic agent; Z95.5 Presence of coronary angioplasty implant and graft